=== PATIENT | male | born 1970 | race Caucasian/White ===

== ENCOUNTER 2023-07-31 13:46 | Emergency (ER) | payer OTHER ==
[2023-07-31 14:54] VITALS: TEMP 97.6
[2023-07-31] MEDS ORDERED: CIPROFLOXACIN-DEXAMETH 0.3-0.1% DROPS 7.5 ML BTL LEFT EAR STA (15:22)
[2023-07-31] MEDS ORDERED: DEXAMETHASONE SOD PHOSPHATE 10 MG/ML 1 ML VIAL IM STA (15:22)
[2023-07-31] MEDS ORDERED: traMADol 50 MG STARTER PACK 3 TAB BTL PO STA (15:23)
--- NOTE | 2023-07-31 15:36 | ED ---
ENT HPI - General Chief complaint: ENT Stated complaint: body aches Time Seen by Provider: 07/31/23 15:03 Source: patient, RN notes reviewed Mode of arrival: ambulatory Limitations: no limitations - History of Present Illness Initial comments: This is a 53-year-old male who presents to the emergency department for body aches and left ear pain. Patient states that he has a history of rheumatoid arthritis, and because he recently moved to the area, he has not been able to get his medication. He was previously treated with Xeljanz. He does have upcomin g appointments scheduled for the local roofer applicator and a primary care provider. However, states that for the last week he's been having body aches and this feels like a typical rheumatoid arthritis flareup to him. He is taking [id number] ibuprofen with no relief in symptoms. States that courses of steroids usually work well for him. Additionally, starting today he developed left ear pain with some radiation into the jaw. States that he is concerned about getting an ear infection. MD complaint: ear pain - Related Data Home Medications Medication Instructions Recorded Confirmed Escitalopram [Lexapro] 20 mg PO DAILY 01/23/15 06/15/16 amLODIPine [Norvasc] 5 mg PO DAILY 01/23/15 06/15/16 Gabapentin [Neurontin] 300 mg PO TID 06/03/15 06/15/16 Omeprazole [PriLOSEC] 10 mg PO AC-BRKFST 06/03/15 06/15/16 busPIRone HCl [Buspar] 7.5 mg PO BID 12/11/15 06/15/16 Meloxicam [Mobic] 7.5 mg PO BID 01/08/16 06/15/16 Previous Rx's Medication Instructions Recorded Hydrocodone/Acetaminophen [[place] 1 each PO Q6HR PRN #30 tab 06/15/16 5-325] cefUROXime axetiL [Ceftin] 500 mg PO BID 7 Days #14 tab 07/31/23 predniSONE 50 mg PO DAILY 5 Days #5 tab 07/31/23 Allergies Allergy/AdvReac Type Severity Reaction Status Date / Time divalproex sodium Allergy Unknown Verified 07/31/23 14:44 [From Depakote] haloperidol [From Haldol] Allergy Unknown Verified 07/31/23 14:44 haloperidol lactate Allergy Unknown Verified 07/31/23 14:44 [From Haldol] Penicillins Allergy Unknown Verified 07/31/23 14:44 Review of Systems ROS Statement: Those systems with pertinent positive or pertinent negative responses have been documented in the HPI. ROS Other: All systems not noted in ROS Statement are negative. Past Medical History Past Medical History: Fibromyalgia, GERD/Reflux, Hypertension Additional Past Medical History / Comment(s): RHEUMATOID ARTHRITIS, FRACTURED SKULL FROM A FALL History of Any Multi-Drug Resistant Organisms: MRSA Date of last positivie culture/infection: 01/23/2015 MDRO Source:: Left Axilla Past Surgical History: Prostate Surgery Additional Past Surgical History / Comment(s): carpal tunnel, lung biopsy Past Psychological History: Anxiety, Bipolar, Depression, Panic Disorder Past Alcohol Use History: None Reported Past Drug Use History: None Reported General Exam Limitations: no limitations General appearance: alert, in no apparent distress Head exam: Present: atraumatic, normocephalic, normal inspection Eye exam: Present: other (Mild left TM erythema with left canal erythema. Tenderness to palpation of the tragus.) Respiratory exam: Present: normal lung sounds bilaterally. Absent: respiratory distress, wheezes, rales, rhonchi, stridor Cardiovascular Exam: Present: regular rate, normal rhythm, normal heart sounds. Absent: systolic murmur, diastolic murmur, rubs, gallop, clicks Neurological exam: Present: alert, oriented X3, CN II-XII intact Psychiatric exam: Present: normal affect, normal mood Skin exam: Present: warm, dry, intact, normal color. Absent: rash Course Vital Signs 07/31/23 07/31/23 14:42 15:49 Temperature 97.6 F Pulse Rate 106 H 100 Respiratory 22 18 Rate Blood Pressure 149/92 150/83 O2 Sat by Pulse 96 97 Oximetry Medical Decision Making - Medical Decision Making This is a 53-year-old male who presents to the emergency department for left ear pain and body aches. Was pt. sent in by a medical professional or institution? @ -No Did you speak to anyone other than the patient for history? @ -No Did you review nursing and triage notes? @ -Yes, and I agree, it is accurate with regards to the patient's symptoms. Were old charts reviewed? @ -No Differential Diagnosis? @ -Differential Ear Pain: Otitis media, otitis externa, eustachian tube dysfunction, allergic rhinitis, barotrauma, bullous myringitis, this is not meant to be an all-inclusive list. EKG interpreted by me (3pts min.)? @ -Not obtained X-rays interpreted by me (1pt min.)? @ -Not obtained CT interpreted by me (1pt min.)? @ -Not obtained U/S interpreted by me (1pt. min.)? @ -Not obtained What testing was considered but not performed? (CT, X-rays, U/S, labs)? Why? @ -I offered to do a cepheid 4-plex swab to evaluate for other causes of the body aches, however the patient declined. What meds were considered but not given? Why? @ -None Did you discuss the management of the patient with other professionals? @ -No Did you reconcile home meds? @ -No Was smoking cessation discussed for >3mins.? @ -No Was critical care preformed (if so, how long)? @ -No Were there social determinants of health that impacted care today? How? (Homelessness, low income, unemployed, alcoholism, drug addiction, transportation, low edu. Level, literacy, decrease access to med. care, long term, rehab)? @ -No Was there de-escalation of care discussed even if they declined? (Discuss DNR or withdrawal of care, Hospice)? @ -No What co-morbidities impacted this encounter? (DM, HTN, Smoking, COPD, CAD, Cancer, CVA, Hep., AIDS, mental health diagnosis, sleep apnea, morbid obesity)? @ -Rheumatoid arthritis Was patient admitted / discharged? @ -Discharged. Physical examination consistent with left otitis media and externa. Prescription for cefuroxime and provided with dosing instructions reviewed. He was also given a bottle of Ciprodex drops in the emergency department to continue using for 7 days for the otitis externa. I did offer to do a Cepheid 4-Plex swab to evaluate for Covid or influenza specifically, in the event that is contributing to the body aches, however the patient declined. Given that this feels like a typical rheumatoid arthritis flare for him, and because steroids are typically effective, he was given a prescription for a 5 day course of prednisone. He was otherwise discharged home in stable condition and will follow up with rheumatology and his primary care provider. Undiagnosed new problem with uncertain prognosis? @ -None Drug Therapy requiring intensive monitoring for toxicity (Heparin, Nitro, Insulin, Cardizem)? @ -None Were any procedures done? @ -None Diagnosis/symptom? @ -Otitis media, otitis externa Acute, or Chronic, or Acute on Chronic? @ -Acute Uncomplicated (without systemic symptoms) or Complicated (systemic symptoms)? @ -Uncomplicated Side effects of treatment? @ -None Exacerbation, Progression, or Severe Exacerbation] @ -Not applicable Poses a threat to life or bodily function? @ -No Diagnosis/symptom? @ -Rheumatoid arthritis Acute, or Chronic, or Acute on Chronic? @ -Chronic Uncomplicated (without systemic symptoms) or Complicated (systemic symptoms)? @ -Uncomplicated Side effects of treatment? @ -None Exacerbation, Progression, or Severe Exacerbation] @ -Exacerbation Poses a threat to life or bodily function? @ -No Return precautions reviewed in depth, the patient is instructed to return to the emergency department with any new, worsening, or concerning symptoms. Patient verbalized understanding. This case was discussed in detail with the attending ED physician, Dr. Purcell. Presentation, findings, and treatment plan discussed in detail as well. Disposition Clinical Impression: Rheumatoid arthritis flare, Otitis media, Otitis externa Disposition: HOME SELF-CARE Instructions (If sedation given, give patient instructions): Swimmer's Ear (ED), Ear Infection (ED), Earache (ED) Additional Instructions: Return to the emergency department with any new, worsening, or concerning symptoms. Take the antibiotic as prescribed for 7 days. Take the prednisone daily for 5 days. Apply the Ciprodex drops provided as 4 drops to the left ear twice daily for 7 days. Prescriptions: cefUROXime axetiL [Ceftin] 500 mg PO BID 7 Days #14 tab predniSONE 50 mg PO DAILY 5 Days #5 tab Is patient prescribed a controlled substance at d/c from ED?: No Referrals: Mary Cary MD [Primary Care Provider] - 1-2 days
[2023-07-31 16:03] VITALS: BP 150/83; PULSE 100; RESP 18
== END 2023-07-31 15:57 | disposition home or self-care (01) ==
LOC: EC 13:46
DX: M06.9 Rheumatoid arthritis, unspecified (principal); H60.92 Unspecified otitis externa, left ear; I10 Essential (primary) hypertension; K21.9 Gastro-esophageal reflux disease without esophagitis; F31.9 Bipolar disorder, unspecified; F41.9 Anxiety disorder, unspecified; Z79.899 Other long term (current) drug therapy; Z88.0 Allergy status to penicillin; Z88.8 Allergy status to other drugs, medicaments and biological substances
CPT/HCPCS: 99283; 96372; J1100

== ENCOUNTER → 2023-08-05 | Outpatient (CLI) | payer OTHER ==
--- NOTE | 2023-08-08 22:02 | CT ---
EXAMINATION TYPE: CT chest wo con DATE OF EXAM: 08/05/2023 COMPARISON: 12/30/2015 HISTORY: 53-year-old male J44.9 COPD, Emphysema, Chronic SOB. TECHNIQUE: Contiguous axial scanning of the chest without IV contrast. Coronal/sagittal reconstructio ns performed. CT DLP: 568mGycm. Automatic exposure control utilized for a dose reduction. FINDINGS: The heart is normal size with trace pericardial fluid. Aorta normal caliber with bovine configuration to the aortic arch. No thoracic lymphadenopathy by CT size criteria. Calcified right hilar lymph nodes remain unchanged a nd are compatible with prior granulomatous disease. There is redemonstrated mass effect onto the anterolateral wall of the heart secondary to massive bul lous change filling the left upper lung and anteriorly down to the left lung base spanning up to near ly 29 cm, refer to sagittal image 86. Bullous change has increased here compared to 2016. Lesser degr ee of bullous change at the right upper lung. There is soft tissue thickening along the posterior margin of the large left-sided bulla measuring up to 4.6 x 1.9 cm which appears to have increased from prior. Possibly increasing parenchymal scarring or adjacent atelectasis given the increase in size of the bullous change. 4 mm right midlung pulmonary nodule is unchanged. Tiny hiatal hernia. Otherwise, visualized upper abdomen shows no gross abnormality. Bones: Mild degenerative disc disease mid to lower thoracic spine. IMPRESSION: 1. Bullous emphysema. Severe bullous change filling the left upper lung down to the anterior left bas e, enlarged from 2016 and spanning nearly 29 cm top to bottom. This large bulla causes some mass effe ct on to the anterolateral wall of the heart, similar to prior. Given the very large size, consider r eferral to assessment for possible bullectomy. 2. There is increasing focal left midlung opacity along the posterior margin of the left-sided bullou s change, probably increasing scarring or increasing adjacent atelectasis. Reassess in 3-6 months. 3. Evidence of prior granulomatous disease.
== END | disposition home or self-care (01) ==
LOC: RADCTMAIN 15:00
PROVIDERS: ATTEND Family Medicine
DX: J44.9 Chronic obstructive pulmonary disease, unspecified (principal); J43.8 Other emphysema; J98.4 Other disorders of lung; I51.7 Cardiomegaly; R91.8 Other nonspecific abnormal finding of lung field; Z72.0 Tobacco use
CPT/HCPCS: 71250

== ENCOUNTER → 2023-09-01 | Outpatient (CLI) | payer OTHER ==
--- NOTE | 2023-09-01 18:47 | US ---
EXAMINATION TYPE: US venous doppler duplex LE DATE OF EXAM: 09/01/2023 10:44 AM COMPARISON: NONE CLINICAL INDICATION: Male, 53 years old with history of R22.43 LOCALIZED SWELLING, MASS AND LUMP, LOW ER LI; No hx of DVT. Patient does not take blood thinners. Swelling x a couple years. SIDE PERFORMED: Bilateral TECHNIQUE: The lower extremity deep venous system is examined utilizing real time linear array sonog radha with graded compression, doppler sonography and color-flow sonography. VESSELS IMAGED: Common Femoral Vein Deep Femoral Vein Greater Saphenous Vein * Femoral Vein Popliteal Vein Small Saphenous Vein * Proximal Calf Veins (* superficial vessels) Right Leg: No evidence of DVT. Left Leg: No evidence of DVT. IMPRESSION: 1. Bilateral lower extremity ultrasound negative for deep venous thrombosis
== END | disposition home or self-care (01) ==
LOC: RADUSWWP 10:24
PROVIDERS: ATTEND Family Medicine
DX: R22.43 Localized swelling, mass and lump, lower limb, bilateral (principal)
CPT/HCPCS: 93970

== ENCOUNTER 2023-09-23 15:38 | Emergency (ER) | payer OTHER ==
[2023-09-23] MEDS ORDERED: IPRATROPIUM-ALBUTEROL 3 ML NEB INHALATION STA (17:08)
[2023-09-23 17:26] LABS: Basophils # (A) 0.1 k/uL (0-0.2); Basophils % (A) 0 %; Eosinophils # (A) 0.1 k/uL (0-0.7); Eosinophils % (A) 1 %; HCT 48.3 % (39.0-53.0); HGB 17.3 gm/dL (13.0-17.5); Lymphocytes # (A) 2.1 k/uL (1.0-4.8); Lymphocytes % (A) 20 %; MCH 33.6 pg (25.0-35.0); MCHC 35.7 g/dL (31.0-37.0); MCV 94.1 fL (80.0-100.0); Mean Platelet Volume 8.2; Monocytes # (A) 0.6 k/uL (0-1.0); Monocytes % (A) 6 %; Neutrophils # (A) 7.9 k/uL (1.3-7.7); Neutrophils % (A) 72 %; Platelet Count 290 k/uL (150-450); RBC 5.13 m/uL (4.30-5.90); RDW 12.7 % (11.5-15.5)
[2023-09-23 17:31] LABS: ALT 19 U/L (4-49); AST 23 U/L (17-59); African American GFR (CKD) >90 (>60 ml/min/1.73 sqM); Albumin 4.3 g/dL (3.5-5.0); Alkaline Phosphatase 108 U/L (38-126); Anion Gap 8 mmol/L; Blood Urea Nitrogen 20 mg/dL (9-20); Calcium 9.5 mg/dL (8.4-10.2); Carbon Dioxide 29 mmol/L (22-30); Chloride 102 mmol/L (98-107); Glucose 101 mg/dL (74-99); Magnesium 1.9 mg/dL (1.6-2.3); Non-African American GFR(CKD) >90 (>60 ml/min/1.73 sqM); Sodium 139 mmol/L (137-145); Total Bilirubin 0.6 mg/dL (0.2-1.3); Total Protein 7.3 g/dL (6.3-8.2)
[2023-09-23 17:32] LABS: Potassium 3.9 mmol/L (3.5-5.1)
[2023-09-23 17:44] LABS: INR 0.9 (<1.2); Partial Thromboplastin Time 24.5 sec (22.0-30.0); Prothrombin Time 10.4 sec (10.0-12.5)
--- NOTE | 2023-09-23 18:01 | XR ---
EXAMINATION TYPE: XR chest 2V DATE OF EXAM: 09/23/2023 COMPARISON: -16 HISTORY: Shortness of breath TECHNIQUE: Frontal and lateral views of the chest are obtained. FINDINGS: Scattered senescent parenchymal changes noted. Hyperinflation compatible with COPD. Severe emphysemat ous bullous changes left upper lobe. No evidence for infiltrate. No evidence for atelectasis. Heart size is stable. Mediastinal structures are stable and grossly unremarkable. No evidence for hilar prominence. Degenerative changes dorsal spine. IMPRESSION: 1. No evidence for acute pulmonary disease.
--- NOTE | 2023-09-23 18:11 | ED ---
General Adult HPI - General Chief complaint: Recheck/Abnormal Lab/Rx Stated complaint: Abnormal EKG/sent by dr Time Seen by Provider: 09/23/23 16:41 Source: patient, RN notes reviewed, old records reviewed Mode of arrival: ambulatory Limitations: no limitations - History of Present Illness Initial comments: This is a 53-year-old male who presents to the emergency department stating he has been having some intermittent chest pain over the last few days. Patient states he is a smoker does have high blood pressure and high cholesterol. Patient states he went to see his doctor they did an EKG and his heart rate was 120 beats a minute she wanted to come to the emergency department to be evaluated. Patient states he does have some difficulty breathing and occasional cough but he is a heavy smoker. Patient denies any palpitation. Patient denies any abdominal pain patient has nausea vomiting diarrhea - Related Data Home Medications Medication Instructions Recorded Confirmed Escitalopram [Lexapro] 20 mg PO DAILY 01/23/15 06/15/16 amLODIPine [Norvasc] 5 mg PO DAILY 01/23/15 06/15/16 Gabapentin [Neurontin] 300 mg PO TID 06/03/15 06/15/16 Omeprazole [PriLOSEC] 10 mg PO AC-BRKFST 06/03/15 06/15/16 busPIRone HCl [Buspar] 7.5 mg PO BID 12/11/15 06/15/16 Meloxicam [Mobic] 7.5 mg PO BID 01/08/16 06/15/16 Previous Rx's Medication Instructions Recorded Hydrocodone/Acetaminophen [[place] 1 each PO Q6HR PRN #30 tab 06/15/16 5-325] cefUROXime axetiL [Ceftin] 500 mg PO BID 7 Days #14 tab 07/31/23 predniSONE 50 mg PO DAILY 5 Days #5 tab 07/31/23 Allergies Allergy/AdvReac Type Severity Reaction Status Date / Time divalproex sodium Allergy Unknown Verified 09/23/23 15:48 [From Depakote] haloperidol [From Haldol] Allergy Unknown Verified 09/23/23 15:48 haloperidol lactate Allergy Unknown Verified 09/23/23 15:48 [From Haldol] Penicillins Allergy Unknown Verified 09/23/23 15:48 Review of Systems ROS Statement: Those systems with pertinent positive or pertinent negative responses have been documented in the HPI. ROS Other: All systems not noted in ROS Statement are negative. Past Medical History Past Medical History: Fibromyalgia, GERD/Reflux, Hypertension Additional Past Medical History / Comment(s): RHEUMATOID ARTHRITIS, FRACTURED SKULL FROM A FALL History of Any Multi-Drug Resistant Organisms: MRSA Date of last positivie culture/infection: 01/23/2015 MDRO Source:: Left Axilla Past Surgical History: Prostate Surgery Additional Past Surgical History / Comment(s): carpal tunnel, lung biopsy Past Psychological History: Anxiety, Bipolar, Depression, Panic Disorder Smoking Status: Current every day smoker Past Alcohol Use History: None Reported Past Drug Use History: None Reported General Exam - General Exam Comments Initial Comments: GENERAL: Patient is well-developed and well-nourished. Patient is nontoxic and well- hydrated and is in mild distress. ENT: Neck is soft and supple. No significant lymphadenopathy is noted. Oropharynx is clear. Moist mucous membranes. Neck has full range of motion without eliciting any pain. EYES: The sclera were anicteric and conjunctiva were pink and moist. Extraocular movements were intact and pupils were equal round and reactive to light. Eyelids were unremarkable. PULMONARY: Expiratory wheezing CARDIOVASCULAR: There is a regular rate and rhythm without any murmurs gallops or rubs. ABDOMEN: Soft and nontender with normal bowel sounds. SKIN: Skin is clear with no lesions or rashes and otherwise unremarkable. NEUROLOGIC: Patient is alert and oriented x3. Cranial nerves II through XII are grossly in tact. Motor and sensory are also intact. Normal speech, volume and content. Symmetrical smile. MUSCULOSKELETAL: Normal extremities with adequate strength and full range of motion. LYMPHATICS: No significant lymphadenopathy is noted PSYCHIATRIC: Normal psychiatric evaluation. Limitations: no limitations Course Vital Signs 09/23/23 09/23/23 09/23/23 15:45 17:51 17:58 Temperature 97.4 F L Pulse Rate 128 H 120 H 118 H Respiratory 18 20 20 Rate Blood Pressure 151/89 O2 Sat by Pulse 97 Oximetry 09/23/23 18:44 Temperature 98.0 F Pulse Rate 101 H Respiratory 16 Rate Blood Pressure 136/91 O2 Sat by Pulse 96 Oximetry Medical Decision Making - Medical Decision Making EKG is interpreted by myself EKG shows a sinus tachycardia at 121 bpm SD interval is 148 QRS is 94 QT interval 314 QTc is 386 patient's EKG shows no ST segment ovation or depression. Was pt. sent in by a medical professional or institution (LITZY Carlton, ATHLETIC EQUIPMENT CUSTODIAN, urgent care, hospital, or care home...) When possible be specific @ -No Did you speak to anyone other than the patient for history (EMS, parent, family, police, friend...)? What history was obtained from this source @ -No Did you review nursing and triage notes (agree or disagree)? Why? @ -I reviewed and agree with nursing and triage notes Were old charts reviewed (outside hosp., previous admission, EMS record, old EKG, old radiological studies, urgent care reports/EKG's, care home records)? Report findings @ -I reviewed prior charts and prior lab work on this patient Differential Diagnosis (chest pain, altered mental status, abdominal pain women, abdominal pain men, vaginal bleeding, weakness, fever, dyspnea, syncope, headache, dizziness, GI bleed, back pain, seizure, CVA, palpatations, mental health, musculoskeletal)? @ -Differential Chest Pain: Stable Angina, Unstable Angina, STEMI, NSTEMI Aortic Dissection, Pneumothorax, Musculoskeletal, Esophageal Spasm GERD, Cholecystitis, Pancreatitis, Zoster, this is not meant to be an all-inclusive list. Differential Palpitations Ventricular arrhythmias, atrial arrhythmias, myocardial infarction, anemia, thyrotoxicosis, electrolyte imbalance, hypokalemia, pulmonary embolism, pulmonary disease, drugs, alcohol, anxiety, stress.... This is not meant to be an all-inclusive list. EKG interpreted by me (3pts min.). @ -As above X-rays interpreted by me (1pt min.). @ -Chest x-ray showed no acute normality CT interpreted by me (1pt min.). @ -None done U/S interpreted by me (1pt. min.). @ -None done What testing was considered but not performed or refused? (CT, X-rays, U/S, labs)? Why? @ -None What meds were considered but not given or refused? Why? @ -None Did you discuss the management of the patient with other professionals (professionals i.e. LITZY Carlton, ATHLETIC EQUIPMENT CUSTODIAN, lab, RT, psych nurse, director of social work, frit mixer and burner, teacher, juvenile detention officer, director case management)? Give summary @ -No Was smoking cessation discussed for >3mins.? @ -No Was critical care preformed (if so, how long)? @ -No Were there social determinants of health that impacted care today? How? (Homelessness, low income, unemployed, alcoholism, drug addiction, transpor tation, low edu. Level, literacy, decrease access to med. care, [facility], rehab)? @ -No Was there de-escalation of care discussed even if they declined (Discuss DNR or withdrawal of care, Hospice)? DNR status @ -No What co-morbidities impacted this encounter? (DM, HTN, Smoking, COPD, CAD, Cancer, CVA, ARF, Chemo, Hep., AIDS, mental health diagnosis, sleep apnea, morbid obesity)? @ -None Was patient admitted / discharged? Hospital course, mention meds given and route, prescriptions, significant lab abnormalities, going to OR and other pertinent info. @ -Patient's lab work came back within normal limits as did the chest x-ray patient was still tachycardic at 105 bpm. I spoke to the patient about staying overnight and I recommended it. Patient refused stated he will follow-up as an outpatient and I indicated to him that he would have to sign out AGAINST MEDICAL ADVICE he said he was okay with that and did so Undiagnosed new problem with uncertain prognosis? @ -No Drug Therapy requiring intensive monitoring for toxicity (Heparin, Nitro, Insulin, Cardizem)? @ -No Were any procedures done? @ -No Diagnosis/symptom? @ -Chest pain Acute, or Chronic, or Acute on Chronic? @ -Acute Uncomplicated (without systemic symptoms) or Complicated (systemic symptoms)? @ -Complicated Side effects of treatment? @ -No Exacerbation, Progression, or Severe Exacerbation? @ -No Poses a threat to life or bodily function? How? (Chest pain, [place], [place], pneumonia, PE, COPD, DKA, ARF, appy, cholecystitis, CVA, Diverticulitis, Homicidal, Suicidal, threat to staff... and all critical care pts) @ -This could lead to an [place] and endorgan dysfunction or - Lab Data Result diagrams: 09/23/23 17:21 09/23/23 17:21 Lab Results 09/23/23 09/23/23 09/23/23 Range/Units 17:21 17:21 17:21 WBC 11.0 H (3.8-10.6) k/uL RBC 5.13 (4.30-5.90) m/uL Hgb 17.3 (13.0-17.5) gm/dL Hct 48.3 (39.0-53.0) % MCV 94.1 (80.0-100.0) fL MCH 33.6 (25.0-35.0) pg MCHC 35.7 (31.0-37.0) g/dL RDW 12.7 (11.5-15.5) % Plt Count 290 (150-450) k/uL MPV 8.2 Neutrophils % 72 % Lymphocytes % 20 % Monocytes % 6 % Eosinophils % 1 % Basophils % 0 % Neutrophils # 7.9 H (1.3-7.7) k/uL Lymphocytes # 2.1 (1.0-4.8) k/uL Monocytes # 0.6 (0-1.0) k/uL Eosinophils # 0.1 (0-0.7) k/uL Basophils # 0.1 (0-0.2) k/uL PT 10.4 (10.0-12.5) sec INR 0.9 (<1.2) APTT 24.5 (22.0-30.0) sec D-Dimer 0.22 (<0.60) mg/L FEU Sodium 139 (137-145) mmol/L Potassium 3.9 (3.5-5.1) mmol/L Chloride 102 (98-107) mmol/L Carbon Dioxide 29 (22-30) mmol/L Anion Gap 8 mmol/L BUN 20 (9-20) mg/dL Creatinine 0.70 (0.66-1.25) mg/dL Est GFR (CKD-EPI)AfAm >90 (>60 ml/min/1.73 sqM) Est GFR (CKD-EPI)NonAf >90 (>60 ml/min/1.73 sqM) Glucose 101 H (74-99) mg/dL Plasma Lactic Acid Dandre (0.7-2.0) mmol/L Calcium 9.5 (8.4-10.2) mg/dL Magnesium 1.9 (1.6-2.3) mg/dL Total Bilirubin 0.6 (0.2-1.3) mg/dL AST 23 (17-59) U/L ALT 19 (4-49) U/L Alkaline Phosphatase 108 (38-126) U/L Troponin I (0.000-0.034) ng/mL Total Protein 7.3 (6.3-8.2) g/dL Albumin 4.3 (3.5-5.0) g/dL 09/23/23 09/23/23 Range/Units 17:21 17:55 WBC (3.8-10.6) k/uL RBC (4.30-5.90) m/uL Hgb (13.0-17.5) gm/dL Hct (39.0-53.0) % MCV (80.0-100.0) fL MCH (25.0-35.0) pg MCHC (31.0-37.0) g/dL RDW (11.5-15.5) % Plt Count (150-450) k/uL MPV Neutrophils % % Lymphocytes % % Monocytes % % Eosinophils % % Basophils % % Neutrophils # (1.3-7.7) k/uL Lymphocytes # (1.0-4.8) k/uL Monocytes # (0-1.0) k/uL Eosinophils # (0-0.7) k/uL Basophils # (0-0.2) k/uL PT (10.0-12.5) sec INR (<1.2) APTT (22.0-30.0) sec D-Dimer (<0.60) mg/L FEU Sodium (137-145) mmol/L Potassium (3.5-5.1) mmol/L Chloride (98-107) mmol/L Carbon Dioxide (22-30) mmol/L Anion Gap mmol/L BUN (9-20) mg/dL Creatinine (0.66-1.25) mg/dL Est GFR (CKD-EPI)AfAm (>60 ml/min/1.73 sqM) Est GFR (CKD-EPI)NonAf (>60 ml/min/1.73 sqM) Glucose (74-99) mg/dL Plasma Lactic Acid Dandre 1.3 (0.7-2.0) mmol/L Calcium (8.4-10.2) mg/dL Magnesium (1.6-2.3) mg/dL Total Bilirubin (0.2-1.3) mg/dL AST (17-59) U/L ALT (4-49) U/L Alkaline Phosphatase (38-126) U/L Troponin I <0.012 (0.000-0.034) ng/mL Total Protein (6.3-8.2) g/dL Albumin (3.5-5.0) g/dL Disposition Clinical Impression: Chest pain Disposition: LEFT AGAINST MEDICAL ADVICE Referrals: Mary Cary MD [Primary Care Provider] - 1-2 days Time of Disposition: 19:01
[2023-09-23 19:10] VITALS: BP 136/91; PULSE 101; RESP 16; TEMP 98
== END 2023-09-23 18:51 | disposition left against medical advice (07) ==
LOC: EC 15:38
DX: R07.89 Other chest pain (principal); R00.0 Tachycardia, unspecified; I10 Essential (primary) hypertension; K21.9 Gastro-esophageal reflux disease without esophagitis; F41.9 Anxiety disorder, unspecified; F31.9 Bipolar disorder, unspecified; M06.9 Rheumatoid arthritis, unspecified; F17.200 Nicotine dependence, unspecified, uncomplicated; Z53.29 Procedure and treatment not carried out because of patient's decision for other reasons; Z79.899 Other long term (current) drug therapy; Z88.0 Allergy status to penicillin; Z88.8 Allergy status to other drugs, medicaments and biological substances
CPT/HCPCS: 36415; 71046; 80053; 83605; 83735; 84484; 85025; 85379; 85610; 85730; 93005; 94640; 99285

== ENCOUNTER → 2023-12-12 | Outpatient (CLI) | payer OTHER ==
[2023-12-12 11:16] LABS: HCT 48.1 % (39.6-50.0); MCH 31.7 pg (27.0-32.0); MCHC 33.3 g/dL (32.0-37.0); MCV 95.2 FL (80.0-97.0); Mean Platelet Volume 9.6 FL (9.5-12.2); NRBC Per 100 WBC 0 X 10*3/uL (0.00-0.01); Platelet Count 278 X 10*3/uL (140-440); RBC 5.05 X 10*6/uL (4.40-5.60); WBC 9.84 X 10*3/uL (4.50-10.00)
[2023-12-12 11:37] LABS: ALT 16 U/L (10-49); AST 19 U/L (14-35); Albumin 4.1 g/dL (3.8-4.9); Albumin/Globulin Ratio 1.71 Ratio (1.60-3.17); Alkaline Phosphatase 114 U/L (41-126); BUN/Creat Ratio 15.12 Ratio (12.00-20.00); Blood Urea Nitrogen 12.1 mg/dL (9.0-27.0); Calcium 9.2 mg/dL (8.7-10.3); Carbon Dioxide 28.1 mmol/L (21.6-31.8); Chloride 105 mmol/L (96-109); Chol/HDL Ratio 2.45 Ratio; Globulin 2.4 g/dL (1.6-3.3); Glucose 100 mg/dL (70-110); LDL Cholesterol,Calculated 34.3 mg/dL (0.0-131.0); Potassium 4.3 mmol/L (3.5-5.5); Sodium 144 mmol/L (135-145); Total Bilirubin 0.4 mg/dL (0.3-1.2); Total Protein 6.5 g/dL (6.2-8.2)
== END | disposition home or self-care (01) ==
LOC: LABWHC1 06:53
PROVIDERS: ATTEND Student in an Organized Health Care Education/Training Program
DX: I10 Essential (primary) hypertension (principal); E11.9 Type 2 diabetes mellitus without complications; R00.0 Tachycardia, unspecified
CPT/HCPCS: 36415; 80053; 80061; 83036; 84443; 85027

== ENCOUNTER 2024-02-06 05:50 | Day surgery (SDC) | payer OTHER ==
[2024-02-02 14:29] VITALS: BMI 26.9
[~2024-02-06 05:50] MED LIST: ALPRAZolam 0.25 MG TAB PO PRN; ALPRAZolam 0.5 MG TAB PO PRN; ASPIRIN 325 MG TAB PO STA; ATORVASTATIN 80 MG TAB PO STA; HEPARIN SODIUM,PORCINE (1 ML) 2,500 UNIT in SODIUM CHLORIDE 0.9% 250 ML IRRIGATION PRN; HEPARIN SODIUM,PORCINE 10,000 UNIT in SODIUM CHLORIDE 0.9% 1,000 ML IRRIGATION PRN; NITROGLYCERIN SL TABS 0.4 MG TAB SUBLINGUAL PRN
[2024-02-06 06:36] VITALS: RESP 18; TEMP 98.2
[2024-02-06] MEDS: IV FLUID CONTINUATION 1,000 ML IV ONE (06:37)
[2024-02-06] MEDS: SODIUM CHLORIDE 0.9% 1,000 ML in EMPTY BAG 1 BAG IV SCH (06:37)
[2024-02-06 06:49] LABS: African American GFR (CKD) >90 (>60 ml/min/1.73 sqM); Anion Gap 5 mmol/L; Blood Urea Nitrogen 16 mg/dL (9-20); Calcium 9.2 mg/dL (8.4-10.2); Carbon Dioxide 28 mmol/L (22-30); Chloride 108 mmol/L (98-107); Glucose 111 mg/dL (74-99); Non-African American GFR(CKD) >90 (>60 ml/min/1.73 sqM); Potassium 3.8 mmol/L (3.5-5.1); Sodium 141 mmol/L (137-145)
[2024-02-06 06:59] LABS: Basophils # (A) 0.1 k/uL (0-0.2); Basophils % (A) 1 %; Eosinophils # (A) 0.2 k/uL (0-0.7); Eosinophils % (A) 2 %; HCT 46.1 % (39.0-53.0); HGB 15.6 gm/dL (13.0-17.5); Lymphocytes # (A) 3.6 k/uL (1.0-4.8); Lymphocytes % (A) 34 %; MCH 31.6 pg (25.0-35.0); MCHC 33.7 g/dL (31.0-37.0); MCV 93.7 fL (80.0-100.0); Mean Platelet Volume 7.9; Monocytes # (A) 0.7 k/uL (0-1.0); Monocytes % (A) 7 %; Neutrophils # (A) 5.9 k/uL (1.3-7.7); Neutrophils % (A) 56 %; Platelet Count 311 k/uL (150-450); RBC 4.92 m/uL (4.30-5.90); RDW 13.3 % (11.5-15.5); WBC 10.6 k/uL (3.8-10.6)
[2024-02-06] MEDS ORDERED: VERAPAMIL 2.5 MG/ML 2 ML AMP ONE (07:14)
[2024-02-06] MEDS ORDERED: LIDOCAINE 1% INJ 10MG/ML (20 ML MDV) ONE (07:14)
[2024-02-06] MEDS ORDERED: HEPARIN SODIUM 1,000 UN/ML (10ML VL) ONE (07:36)
[2024-02-06] MEDS ORDERED: fentaNYL (PF) 50 MCG/ML 2 ML AMP ONE (07:36)
[2024-02-06] MEDS: fentaNYL (PF) 50 MCG/ML 2 ML AMP IVP ONE (07:56)
[2024-02-06] MEDS: MIDAZOLAM 2 MG/2 ML VIAL IVP ONE (07:56)
[2024-02-06] MEDS: LIDOCAINE 1% INJ 10MG/ML (20 ML MDV) SQ ONE (07:57)
[2024-02-06] MEDS: VERAPAMIL 2.5 MG/ML 4 ML VIAL INTRAARTER ONE ×2 (08:00)
[2024-02-06] MEDS: HEPARIN SODIUM 1,000 UN/ML (10ML VL) IVP ONE (08:05)
[2024-02-06] MEDS: IOPAMIDOL-370 100ML BTL INJ ONE (08:17)
[2024-02-06] MEDS ORDERED: RX INFO: IV CONTRAST WAS GIVEN 1 EACH MISC MISCELLANE PRN (08:38)
--- NOTE | 2024-02-06 08:38 | P.CARDCATH ---
Date of Procedure: 02/06/24 Description of Procedure: DIAGNOSTIC CORONARY ANGIOGRAPHY and LEFT HEART CATH REPORT PROCEDURES PERFORMED: Left heart catheterization Selective coronary angiography Moderate conscious sedation 30 mins [Ultrasound assisted] Right radial access INDICATION: Fixed inferior perfusion defect on nuclear stress test. Echocardiogram showing an EF of 45 to 50%. Heart cath was performed because of perfusion defect on nuclear stress test, mild cardiomyopathy along with his symptoms of substernal chest pressure and shortness of breath which is not resolving with metoprolol and calcium channel lisa. CONSENT: I have explained the procedural steps of above-mentioned procedures in layman's terms to the patient. I discussed the risks (including but not limited to stroke, emergent vascular or cardiac surgery or ), benefits and alternative therapies for the above-mentioned procedure. I discussed the risks of sedation/analgesia and blood product administration (if indicated). The patient has indicated understanding and acceptance of these risks. Conscious Sedation: Patient's ECG, heart rate, blood pressure, pulse oximetry were monitored throughout the duration of procedure under my direct supervision. 1 mg Versed and 50 mg Fentanyl were used for induction of moderate conscious sedation. Total duration of moderate concious sedation 30 minutes. PROCEDURE: After explaining the risks, benefits and alternatives of the above mentioned procedures in detail to the patient, informed consent was obtained. Patient was taken to the catheterization lab, prepped and draped in usual sterile fashion using universal precuations. Barbow and michael test were performed to confirm adequate perfusion to fingers. Ultrasound was used to identify the radial artery. 1% lidocaine was infiltrated over the right radial artery. A 6-Slovenian sheath was placed and secured in the right radial artery using modified Seldinger technique. The sheath was flushed and 5 mg verapamil was administered intra-arterially. J tipped wire was advanced under fluoroscopic guidance. Once the wire tip reached aortic root [5000] units of IV heparin was given. Over the wire JR4 diagnostic catheter was advanced. The wire in place the catheter was manipulated to cross the aortic valve and entered into LV under fluoroscopy guidance. The wire was removed and the catheter was flushed. LV pressures were obtained and pullback was performed under fluoroscopy. Catheter was manipulated to selectively engage the right coronary ostium. Right coronary angiography was performed in different angiographic projections. The JR4 diagnostic catheter was exchanged for a JL 4 diagnostic catheter over the J-wire. The wire was removed, catheter was flushed and manipulated under fluoroscopy to selectively engaged the left coronary ostium. Left coronary angioplasty was performed in different angiographic projections. Catheter was removed over the wire. Radial sheath was flushed. The right radial sheath was removed and a TR band was placed with excellent patent hemostasis was achieved. The patient tolerated the procedure well. Patient was transported back to the post catheterization holding area in stable condition. Angiographic images were reviewed in detail. Contrast Isovue 60 mL Sedation time 30 minutes Complications none Blood loss less than 20 mL Total radiation, 265 mGy Fluoroscopy time 6.2 minutes HEMODYNAMICS: Aortic Pressure: 110/80 mmHg. LV pressure: 110/14 mmHg. LVEDP 20 mmHg. There was no significant gradient across the aortic valve. SELECTIVE CORONARY ARTERIOGRAPHY: LEFT MAIN: The left main is a large caliber vessel which bifurcates into the LAD and circumflex. Left main appears angiographically normal. LEFT ANTERIOR DESCENDING CORONARY ARTERY: LAD is large caliber, tortuous. Proximal middle and distal LAD it has mild luminal irregularities. It gives rise to diagonal branches which has mild luminal Mineola's. LEFT CIRCUMFLEX CORONARY ARTERY: It is nondominant vessel. Left circumflex is a moderate caliber vessel. It appears angiographically normal. It gives rise to OM branches which appears angiographically normal. RIGHT CORONARY ARTERY: Dominant vessel. The right coronary artery is a large caliber vessel which gives PDA and PLV branch. RCA is tortuous. It has mild maria t bijan irregularities. IMPRESSION: Angiographically normal coronary arteries as described above. Mildly elevated LVEDP Nonischemic HFmrEF, euvolemic Essential hypertension PLAN: Aggressive risk factor modification per most recent ACC/AHA guidelines. 125 cc fluids for 3 hours Discharge home in 3 hours Follow-up in the office in 1-2 weeks. Performing Physician Montrell Hdez MD, FACC, RPVI Thank you for allowing [facility] to participate in this patient's care. Feel free to reach out in case of any followup questions.
[2024-02-06] MEDS ORDERED: SODIUM CHLORIDE 0.9% 1,000 ML IV SCH (08:45)
[2024-02-06 10:49] VITALS: PULSE 81
[2024-02-06 11:25] VITALS: BP 122/65
== END 2024-02-06 11:58 | disposition home or self-care (01) ==
LOC: CATHCVL 05:50
PROVIDERS: ATTEND Student in an Organized Health Care Education/Training Program
DX: I42.9 Cardiomyopathy, unspecified (principal); I10 Essential (primary) hypertension; J44.9 Chronic obstructive pulmonary disease, unspecified; E78.5 Hyperlipidemia, unspecified; F31.9 Bipolar disorder, unspecified; F41.1 Generalized anxiety disorder; F17.210 Nicotine dependence, cigarettes, uncomplicated; Z88.0 Allergy status to penicillin; Z91.011 Allergy to milk products; Z88.8 Allergy status to other drugs, medicaments and biological substances; Z79.899 Other long term (current) drug therapy
CPT/HCPCS: 93458; 76937; 80048; 85025; 99152; 99153; C1769 ×2; C1894; J2250; J2001; J3010; J1644; Q9967

== ENCOUNTER → 2024-05-02 | Outpatient (CLI) | payer OTHER ==
--- NOTE | 2024-05-02 17:54 | CT ---
EXAMINATION TYPE: CT chest w con CT DLP: 467.4 mGycm, Automated exposure control for dose reduction was used. DATE OF EXAM: 05/02/2024 12:06 PM COMPARISON: CT chest 08/05/2023, chest radiograph 04/17/2024 CLINICAL INDICATION:Male, 53 years old with history of R91.8 ABNORMAL FINDING; PHH, abnormal findings TECHNIQUE: Multiple axial images were obtained through the chest following the administration of 100 cc of Isovue 300. . Coronal and sagittal reformats reviewed. FINDINGS: LUNGS/ PLEURA: No pleural effusion or pneumothorax. Stable soft tissue thickening along the left kim r fissure. Probable atelectasis/scarring. Redemonstration of moderate paraseptal and centrilobular em physematous changes. Redemonstration of massive bullous emphysematous changes in the bilateral upper lungs left greater than right. Stable right midlung 5 mm pulmonary nodule (series 4, image 43). No ne w or enlarging pulmonary nodules. AIRWAY: Patent and unremarkable.. HEART: Size within normal limits. No pericardial effusion. There is again mass effect upon the ada lateral wall of the heart secondary to massive bullous emphysematous change. MEDIASTINUM: No evidence of adenopathy. Calcified right hilar lymph nodes redemonstrated. VASCULATURE: No aortic aneurysm. Reflux of contrast into the IVC and hepatic veins. MUSCULOSKELETAL: No acute osseous abnormalities SOFT TISSUES/LYMPH NODES: Unremarkable. LOWER NECK: No significant findings. UPPER ABDOMEN: No significant findings. IMPRESSION: 1. Severe bullous emphysematous changes redemonstrated. This is again most prominent within the left upper lung. This bulla again causes mass effect on the anterolateral wall of the heart with reflux of contrast into the IVC and hepatic veins suggesting heart dysfunction. 2. Stable focal left midlung opacity along the posterior margin of the left-sided bullous change abut ting the major fissure. Favored to represent scarring and/or atelectasis.
== END | disposition home or self-care (01) ==
LOC: RADCTMAIN 11:32
PROVIDERS: ATTEND Internal Medicine
DX: R91.8 Other nonspecific abnormal finding of lung field
CPT/HCPCS: 71260

== ENCOUNTER 2024-08-24 23:55 | Observation (INO) | payer OTHER ==
[2024-08-25] MEDS: SODIUM CHLORIDE 0.9% 1,000 ML IV STA (00:22)
[2024-08-25] MEDS: IPRATROPIUM 0.5 MG/2.5 ML NEBU INHALATION ONE ×2 (00:23→00:37)
[2024-08-25] MEDS: ALBUTEROL NEBULIZED 2.5 MG/3 ML INHALATION SCH (00:23)
[2024-08-25] MEDS: methylPREDNISolone SOD SUCCI 125 MG/2 ML VIAL IV STA (00:25)
[2024-08-25] MEDS: LORazepam 2 MG/ML INJ IV STA ×3 (00:31→03:58)
[2024-08-25 00:34] LABS: Basophils # (A) 0.1 k/uL (0-0.2); Basophils % (A) 0 %; Eosinophils # (A) 0.2 k/uL (0-0.7); Eosinophils % (A) 1 %; HCT 47.6 % (39.0-53.0); HGB 15.5 gm/dL (13.0-17.5); Lymphocytes # (A) 2.1 k/uL (1.0-4.8); Lymphocytes % (A) 11 %; MCH 31.5 pg (25.0-35.0); MCHC 32.5 g/dL (31.0-37.0); MCV 97.1 fL (80.0-100.0); Monocytes # (A) 1.1 k/uL (0-1.0); Monocytes % (A) 6 %; Neutrophils # (A) 15.9 k/uL (1.3-7.7); Neutrophils % (A) 81 %; Platelet Count 382 k/uL (150-450); RDW 13.4 % (11.5-15.5); WBC 19.6 k/uL (3.8-10.6)
[2024-08-25 00:56] LABS: INR 0.9 (<1.2); Partial Thromboplastin Time 22.5 sec (22.0-30.0)
[2024-08-25 01:08] LABS: ALT 30 U/L (4-49); AST 28 U/L (17-59); African American GFR (CKD) >90 (>60 ml/min/1.73 sqM); Albumin 4.7 g/dL (3.5-5.0); Alkaline Phosphatase 133 U/L (38-126); Anion Gap 7 mmol/L; Blood Urea Nitrogen 19 mg/dL (9-20); Calcium 9.9 mg/dL (8.4-10.2); Carbon Dioxide 33 mmol/L (22-30); Chloride 101 mmol/L (98-107); Glucose 118 mg/dL (74-99); Magnesium 2.1 mg/dL (1.6-2.3); Non-African American GFR(CKD) >90 (>60 ml/min/1.73 sqM); Potassium 4.5 mmol/L (3.5-5.1); Sodium 141 mmol/L (137-145); Total Bilirubin 0.4 mg/dL (0.2-1.3); Total Protein 7.2 g/dL (6.3-8.2)
[2024-08-25 01:17] LABS: NT-Pro-B-Type Natriuretic Pept 101 pg/mL
--- NOTE | 2024-08-25 01:21 | ED ---
General Adult HPI - General Chief complaint: Shortness of Breath Stated complaint: VISHAL Time Seen by Provider: 08/25/24 00:03 Source: patient Mode of arrival: ambulatory Limitations: no limitations - History of Present Illness Initial comments: History is limited by acuity of condition. Patient is a 54-year-old male with a past medical history of COPD, currently smoking, CAD presenting today for shortness of breath x 2 days. Patient endorses subjective fevers and chills but has not measured a temperature at home, states he has had a sore throat and congestion as well. Endorses cough with increased sputum production but no hemoptysis. Endorses mild lower chest discomfort but states that this is discomfort he has had in the past with COPD exacerbations. Denies lower extremity swelling. No recent travels, surgery or hospitalizations. States he did recently see his cutting and printing machine operator Dr. Hdez who "checked him for blood clots" and did not find any. Does not wear oxygen at home. - Related Data Home Medications Medication Instructions Recorded Confirmed amLODIPine [Norvasc] 5 mg PO DAILY 01/23/15 08/25/24 Albuterol Inhaler [Ventolin Hfa 2 puff INHALATION RT-Q4H PRN 09/23/23 08/25/24 Inhaler] Budesonide/Formoterol Fumarate 2 puff INHALATION RT-BID 09/23/23 08/25/24 [Symbicort 160-4.5 Mcg Inhaler] DULoxetine HCL [Cymbalta] 60 mg PO DAILY 09/23/23 08/25/24 Hydroxychloroquine Sulfate 200 mg PO BID 09/23/23 08/25/24 [Plaquenil] busPIRone HCl [Buspar] 10 mg PO BID 09/23/23 08/25/24 Aspirin [Adult Low Dose Aspirin EC] 81 mg PO DAILY 02/02/24 08/25/24 Losartan [Cozaar] 25 mg PO DAILY 02/02/24 08/25/24 Metoprolol Tartrate 25 mg PO BID 02/02/24 08/25/24 Tofacitinib Citrate [Xeljanz Xr] 11 mg PO DAILY 02/02/24 08/25/24 ARIPiprazole [Abilify] 5 mg PO HS 08/25/24 08/25/24 Ipratropium-Albuterol Nebulize 3 ml INHALATION RT-QID 08/25/24 08/25/24 [Duoneb 0.5 mg-3 mg/3 ml Soln] [place] Carbonate 600 mg PO HS 08/25/24 08/25/24 Omeprazole 20 mg PO DAILY 08/25/24 08/25/24 Rosuvastatin [Crestor] 20 mg PO DAILY 08/25/24 08/25/24 Tiotropium 2.5 Mcg/Puff [Spiriva 2 puff INHALATION RT-DAILY 08/25/24 08/25/24 Respimat 2.5 Mcg] Allergies Allergy/AdvReac Type Severity Reaction Status Date / Time divalproex sodium AdvReac Nausea & Verified 08/25/24 00:02 [From Depakote] Vomiting haloperidol [From Haldol] AdvReac Nausea & Verified 08/25/24 00:02 Vomiting haloperidol lactate AdvReac Nausea & Verified 08/25/24 00:02 [From Haldol] Vomiting Penicillins AdvReac Nausea & Verified 08/25/24 00:02 Vomiting Review of Systems ROS Statement: Those systems with pertinent positive or pertinent negative responses have been documented in the HPI. ROS Other: All systems not noted in ROS Statement are negative. Past Medical History Past Medical History: COPD, Fibromyalgia, GERD/Reflux, Hyperlipidemia, Hypertension, Rheumatoid Arthritis (RA), Skin Disorder Additional Past Medical History / Comment(s): See Dr Hdez's H&P. Ulcerative colitis. Constipation. HX FRACTURED SKULL FROM A FALL, hx fractures of arms and hands. Psorasis. Poor circulation. Hx kidney stones. Migraines. Issues with vasovagal response with coughing. Vertigo. History of Any Multi-Drug Resistant Organisms: MRSA Date of last positivie culture/infection: 01/23/2015 MDRO Source:: Left Axilla Past Surgical History: Prostate Surgery Additional Past Surgical History / Comment(s): Right carpal tunnel, right lung biopsy, EGD. Past Anesthesia/Blood Transfusion Reactions: No Reported Reaction Additional Past Anesthesia/Blood Transfusion Reaction / Comment(s): No family hx known - adopted. Past Psychological History: Anxiety, Bipolar, Depression, Panic Disorder Smoking Status: Current every day smoker Past Alcohol Use History: None Reported Past Drug Use History: None Reported - Past Family History Daughter(s) Family Medical History: No Reported History Additional Family Medical History / Comment(s): Patient states adopted at age 2, no known family hx. Patient states 2 daughters and 1 son removed from his care by the state, does not know any family hx. General Exam - General Exam Comments Initial Comments: PE: CONSTITUTIONAL: Moderate distress, ill-appearing, leaning forward sitting on edge of bed SKIN: Mild cyanosis of lips, cool, dry, no jaundice, hives or petechiae EYES: Pupils are equally round, extraocular movements intact without nystagmus, clear conjunctiva, non-icteric sclera HENT: Normocephalic, atraumatic, moist mucus membranes, oropharynx clear without exudates NECK: , Full range of motion, normal appearance PULMONARY: Wheezes and rhonchi present in all lung singleton, decreased excrusion, +accessory muscle use, no stridor, no rales or crackles CARDIOVASCULAR: Tachycardia regular rate, rhythm, normal S1 and S2. No appreciated murmurs, rubs or gallops. Strong radial pulses with intact distal perfusion. No lower extremity edema GASTROINTESTINAL: Soft, active bowel sounds throughout, non-tender, non- distended, no palpable masses, no rebound or guarding. No hepatosplenomegaly MUSCULOSKELETAL: Extremities have no gross deformity, no edema, redness, or swelling. No calf swelling NEUROLOGIC:_a/o x 3, GCS 15, normal mentation and speech. Moves all extremities x 4 without motor or sensory deficit PSYCHIATRIC:_anxious mood and affect, thought process is clear and linear Limitations: no limitations Course Vital Signs 08/24/24 08/25/24 08/25/24 23:59 00:07 00:11 Temperature 98.4 F Pulse Rate 96 Respiratory 22 24 Rate Blood Pressure 147/96 O2 Sat by Pulse 88 L Oximetry Fraction of 100 Inspired Oxygen (FIO2) 08/25/24 08/25/24 08/25/24 00:26 00:27 00:30 Temperature Pulse Rate 101 H Respiratory Rate Blood Pressure O2 Sat by Pulse Oximetry Fraction of 80 60 Inspired Oxygen (FIO2) 08/25/24 08/25/24 08/25/24 00:37 00:47 00:49 Temperature Pulse Rate 98 101 H 99 Respiratory 27 H Rate Blood Pressure 153/97 O2 Sat by Pulse 97 Oximetry Fraction of Inspired Oxygen (FIO2) 08/25/24 08/25/24 08/25/24 00:57 01:30 02:18 Temperature Pulse Rate 104 H 98 Respiratory 24 Rate Blood Pressure 142/94 O2 Sat by Pulse 97 Oximetry Fraction of 40 Inspired Oxygen (FIO2) 08/25/24 02:26 Temperature Pulse Rate 97 Respiratory Rate Blood Pressure O2 Sat by Pulse Oximetry Fraction of Inspired Oxygen (FIO2) EKG Findings - EKG Comments: EKG Findings:: EKG and rotation, limited by artifact, sinus tach tachycardia rate 100 bpm OH interval 166 ms QRS duration 91 ms, QT/QTc 326/3 to 3 ms, normal axis, no obvious ST elevations or depressions, compared to EKG performed on 09/23/2023 no significant changes from prior Medical Decision Making - Medical Decision Making Was pt. sent in by a medical professional or institution (, PA, AIR TUBE RELEASER, urgent care, hospital, or fpc...) When possible be specific @ -No Did you speak to anyone other than the patient for history (EMS, parent, family, police, friend...)? What history was obtained from this source @ -No Did you review nursing and triage notes (agree or disagree)? Why? @ -I reviewed and agree with nursing and triage notes Were old charts reviewed (outside hosp., previous admission, EMS record, old EKG, old radiological studies, urgent care reports/EKG's, fpc records)? Report findings @ -Medical records reviewed Differential Diagnosis (chest pain, altered mental status, abdominal pain women, abdominal pain men, vaginal bleeding, weakness, fever, dyspnea, syncope, headache, dizziness, GI bleed, back pain, seizure, CVA, palpatations, mental health, musculoskeletal)? @Differential Dyspnea: Coronary syndrome, arrhythmia, tamponade, asthma, COPD, pneumonia, pneumothorax, pulmonary effusion, anaphylaxis, diabetic ketoacidosis, anemia, neuromuscular, this is not meant to be an all-inclusive list. EKG interpreted by me (3pts min.). @ -As above X-rays interpreted by me (1pt min.) @Hyperinflation, large pleural bleb left lung, no pneumothorax; no obvious consolidations CT interpreted by me (1pt min.). @ -None done U/S interpreted by me (1pt. min.). @ -None done What testing was considered but not performed or refused? (CT, X-rays, U/S, labs)? Why? @ -None What meds were considered but not given or refused? Why? @I did consider Precedex infusion for continued anxiolysis on BiPAP however would require ICU admission and patient ultimately responded to Ativan Did you discuss the management of the patient with other professionals (professionals i.e. , PA, AIR TUBE RELEASER, lab, RT, psych nurse, social science teacher, child life therapist, teacher, radiation officer, child support case officer)? Give summary @Case was discussed with Dr. Donohue, please see his recommendations below Was smoking cessation discussed for >3mins.? @ -No Was critical care preformed (if so, how long)? @Yes, 60 minutes Were there social determinants of health that impacted care today? How? (Homelessness, low income, unemployed, alcoholism, drug addiction, transportation, low edu. Level, literacy, decrease access to med. care, fpc, rehab)? @ -No Was there de-escalation of care discussed even if they declined (Discuss DNR or withdrawal of care, Hospice)? @ -No What co-morbidities impacted this encounter? (DM, HTN, Smoking, COPD, CAD, Cancer, CVA, ARF, Chemo, Hep., AIDS, mental health diagnosis, sleep apnea, morbid obesity)? @CAD, COPD, current smoker, hypertension Was patient admitted / discharged? Hospital course, mention meds given and route, prescriptions, significant lab abnormalities, going to OR and other pertinent info. @ -@Admission= Patient is a 54-year-old gentleman presenting today for shortness of breath, hi story of COPD. Patient roomed upon arrival due to pulse ox of 88% on room air and increased work of breathing. On my assessment patient is tripoding, diffuse wheezes and rhonchi bilaterally. Mild cyanosis of his lips. Patient immediately placed on BiPAP, steroids, nebulizers ordered. IV access obtained. Pt did endorse to RN claustrophobia so ativan was ordered to help pt tolerate bipap. Patient appeared more comfortable and work of breathing improved on reassessment. Labs reviewed, significant for leukocytosis WBC count 19.6, however this could also be 2/2 steroid administration vs infectious etiology. CXR shows emphysematous changes and large blebs. Patient again more anxious and requesting BiPAP to be removed. He continues to have wheezing bilaterally despite [id number] nebulizer treatments. I discussed with him administering additional medication to help him remain calm and the importance of keeping his BiPAP on out of concern that he would require intubation and ventilator should he remove it and continue to worsen, due to severity of his exacerbation. Additional dose of Ativan ordered. I was called to bedside when RN noted patient to remove his BiPAP mask. On my assessment patient is again tripoding, lips are cyanotic, he has diffuse wheezing bilaterally, received in [facility] about 1 hour ago. Pulse ox went down to 69%. Patient placed back on BiPAP. Patient continued to tolerate BiPAP. Due to severity of patient's COPD exacerbation I will reach out to Dr. Donohue, critical care, to discuss ICU admission for close monitoring. Case discussd w/ Dr. Donohue, he will check into ICU bed status, requests blood gas be obtained. ABG obtained and reflected elevated CO2 ~68, pH 7.29 consistent with respiratory acidosis. IPAP increased to [address] Donohue will see patient in the morning and decide on ICU placement from there. On reassessment patient sleeping comfortably, again tolerating biapp. Pt accepted for admission to [facility], admitted in stable condition. Undiagnosed new problem with uncertain prognosis? @ -No Drug Therapy requiring intensive monitoring for toxicity (Heparin, Nitro, Insulin, Cardizem)? @ -No Were any procedures done? @ -No Diagnosis/symptom? @COPD exacerbation, Acute hypoxemic and hypercapneic respiratory failure Acute, or Chronic, or Acute on Chronic? @acute Uncomplicated (without systemic symptoms) or Complicated (systemic symptoms)? complicated Side effects of treatment? @ -No Exacerbation, Progression, or Severe Exacerbation? @ -No Poses a threat to life or bodily function? How? (Chest pain, USA, DC, pneumonia, PE, COPD, DKA, ARF, appy, cholecystitis, CVA, Diverticulitis, Homicidal, Suicidal, threat to staff... and all critical care pts) @Yes, if let un addressed pt could experience fulminant respiratory failure and - Lab Data Result diagrams: 08/25/24 00:19 08/25/24 00:19 Lab Results 08/25/24 08/25/24 08/25/24 Range/Units 00:19 00:19 00:19 WBC 19.6 H (3.8-10.6) k/uL RBC 4.90 (4.30-5.90) m/uL Hgb 15.5 (13.0-17.5) gm/dL Hct 47.6 (39.0-53.0) % MCV 97.1 (80.0-100.0) fL MCH 31.5 (25.0-35.0) pg MCHC 32.5 (31.0-37.0) g/dL RDW 13.4 (11.5-15.5) % Plt Count 382 (150-450) k/uL MPV 7.0 Neutrophils % 81 % Lymphocytes % 11 % Monocytes % 6 % Eosinophils % 1 % Basophils % 0 % Neutrophils # 15.9 H (1.3-7.7) k/uL Lymphocytes # 2.1 (1.0-4.8) k/uL Monocytes # 1.1 H (0-1.0) k/uL Eosinophils # 0.2 (0-0.7) k/uL Basophils # 0.1 (0-0.2) k/uL PT 10.0 (10.0-12.5) sec INR 0.9 (<1.2) APTT 22.5 (22.0-30.0) sec Sodium 141 (137-145) mmol/L Potassium 4.5 (3.5-5.1) mmol/L Chloride 101 (98-107) mmol/L Carbon Dioxide 33 H (22-30) mmol/L Anion Gap 7 mmol/L BUN 19 (9-20) mg/dL Creatinine 0.67 (0.66-1.25) mg/dL Est GFR (CKD-EPI)AfAm >90 (>60 ml/min/1.73 sqM) Est GFR (CKD-EPI)NonAf >90 (>60 ml/min/1.73 sqM) Glucose 118 H (74-99) mg/dL Calcium 9.9 (8.4-10.2) mg/dL Magnesium 2.1 (1.6-2.3) mg/dL Total Bilirubin 0.4 (0.2-1.3) mg/dL AST 28 (17-59) U/L ALT 30 (4-49) U/L Alkaline Phosphatase 133 H (38-126) U/L Troponin I (0.000-0.034) ng/mL NT-Pro-B Natriuret Pep 101 pg/mL Total Protein 7.2 (6.3-8.2) g/dL Albumin 4.7 (3.5-5.0) g/dL Procalcitonin (0.02-0.50) ng/mL 08/25/24 08/25/24 Range/Units 00:19 00:19 WBC (3.8-10.6) k/uL RBC (4.30-5.90) m/uL Hgb (13.0-17.5) gm/dL Hct (39.0-53.0) % MCV (80.0-100.0) fL MCH (25.0-35.0) pg MCHC (31.0-37.0) g/dL RDW (11.5-15.5) % Plt Count (150-450) k/uL MPV Neutrophils % % Lymphocytes % % Monocytes % % Eosinophils % % Basophils % % Neutrophils # (1.3-7.7) k/uL Lymphocytes # (1.0-4.8) k/uL Monocytes # (0-1.0) k/uL Eosinophils # (0-0.7) k/uL Basophils # (0-0.2) k/uL PT (10.0-12.5) sec INR (<1.2) APTT (22.0-30.0) sec Sodium (137-145) mmol/L Potassium (3.5-5.1) mmol/L Chloride (98-107) mmol/L Carbon Dioxide (22-30) mmol/L Anion Gap mmol/L BUN (9-20) mg/dL Creatinine (0.66-1.25) mg/dL Est GFR (CKD-EPI)AfAm (>60 ml/min/1.73 sqM) Est GFR (CKD-EPI)NonAf (>60 ml/min/1.73 sqM) Glucose (74-99) mg/dL Calcium (8.4-10.2) mg/dL Magnesium (1.6-2.3) mg/dL Total Bilirubin (0.2-1.3) mg/dL AST (17-59) U/L ALT (4-49) U/L Alkaline Phosphatase (38-126) U/L Troponin I <0.012 (0.000-0.034) ng/mL NT-Pro-B Natriuret Pep pg/mL Total Protein (6.3-8.2) g/dL Albumin (3.5-5.0) g/dL Procalcitonin 0.03 (0.02-0.50) ng/mL Disposition Clinical Impression: Acute exacerbation of chronic obstructive pulmonary disease, Acute respiratory failure with hypoxia and hypercapnia Disposition: ADMITTED IP TO THIS HOSP Condition: Stable
[2024-08-25] MEDS: AZITHROMYCIN 500 MG in SODIUM CHLORIDE 0.9% 250 ML IVPB STA (01:28)
[2024-08-25] MEDS: IPRATROPIUM-ALBUTEROL 3 ML NEB INHALATION STA ×2 (02:17→03:28)
[2024-08-25] MEDS ORDERED: ACETAMINOPHEN TAB 325 MG TAB PO PRN (02:33)
[2024-08-25] MEDS ORDERED: NALOXONE 0.4 MG/ML 1 ML VIAL IVP PRN (02:33)
[2024-08-25] MEDS ORDERED: IPRATROPIUM-ALBUTEROL 3 ML NEB INHALATION PRN (02:33)
[2024-08-25] MEDS ORDERED: HYDROcodone/APAP 5-325MG 1 EACH TAB PO PRN (02:33)
--- NOTE | 2024-08-25 03:25 | XR ---
EXAM: XR Chest, 1 View CLINICAL HISTORY: ITS.REASON XR Reason: COPD exacerbation TECHNIQUE: Frontal view of the chest. COMPARISON: No relevant prior studies available. FINDINGS: Lungs: Extensive bullous changes in the upper lung singleton, severely involving the LEFT upper lung. Bilateral lungs RIGHT side atelectasis, preferentially involving the lower lung singleton. Pleural space: Unremarkable. No pneumothorax. Heart: Unremarkable. No cardiomegaly. Mediastinum: Unremarkable. Normal mediastinal contour. Bones/joints: Unremarkable. No acute fracture. IMPRESSION: Extensive bullous changes in the upper lung singleton, severely involving the LEFT upper lung.
[2024-08-25 03:54] LABS: ABG Base Excess 3.2 mmol/L; ABG HCO3 32 mmol/L (21-25); ABG PCO2 68 mmHg (35-45); ABG PH 7.29 (7.35-7.45); ABG PO2 263 mmHg (83-108); ABG TCO2 34 mmol/L (19-24); Allen Test Performed? Yes
[2024-08-25 05:02] LABS: VBG PH 7.34 (7.31-7.41)
[2024-08-25] MEDS: methylPREDNISolone SOD SUCCI 125 MG/2 ML VIAL IV SCH (06:10)
[2024-08-25] MEDS: IPRATROPIUM-ALBUTEROL 3 ML NEB INHALATION SCH (07:59)
[2024-08-25] MEDS: ENOXAPARIN 40 MG/0.4 ML SYRINGE SQ SCH (08:20)
[2024-08-25] MEDS: NICOTINE 14MG/24HR PATCH TRANSDERM SCH (08:20)
[2024-08-25] MEDS: busPIRone HCl 10 MG TAB PO SCH (08:20)
[2024-08-25] MEDS: DOXYCYCLINE 100 MG CAP PO SCH (08:20)
--- NOTE | 2024-08-25 10:09 | P.HPIM ---
History of Present Illness 52-year-old male with extensive history of smoking and history of COPD came in with a complaint of shortness of breath found to have significant wheezing. Patient is admitted for COPD exacerbation patient was on BiPAP at this time. P atient has severe respiratory failure. Patient has extensive wheezing on exam. Chest x-ray did not show any pneumonia. Pro-Mohinder was ordered which is pending. Patient apparently had a sore throat at home before he came in readily hemoptysis complaining of cough without any significant sputum production. Patient was given Rocephin and azithromycin but this did not continued patient is only on doxycycline at this time and systemic steroids along with breathing treatments. Chest x-ray showed extensive emphysema without pneumonia REVIEW OF SYSTEMS: All other systems are negative except those mentioned in the HPI PHYSICAL EXAMINATION: GENERAL: The patient is alert and oriented x3, is in respiratory distress extensive bilateral bilateral wheezing HEENT: Pupils are round and equally reacting to light. EOMI. No scleral icterus. No conjunctival pallor. Normocephalic, atraumatic. No pharyngeal erythema. No thyromegaly. CARDIOVASCULAR: S1 and S2 present. No murmurs, rubs, or gallops. PULMONARY: Significant wheezing bilaterally ABDOMEN: Soft, nontender, nondistended, normoactive bowel sounds. No palpable organomegaly. MUSCULOSKELETAL: No joint swelling or deformity. EXTREMITIES: No cyanosis, clubbing, or pedal edema. NEUROLOGICAL: Gross neurological examination did not reveal any focal deficits. SKIN: No rashes. Assessment and plan -Acute hypercapnic respiratory failure secondary to COPD exacerbation continue BiPAP wean off as tolerated to continue with systemic steroids inhalational treatments. -Gastroesophageal flux disease -Rheumatoid arthritis for which patient is on Plaquenil -Hyperlipidemia -Hypertension Problem mentioned chronic medical problems patient will be resumed on appropriate home medications once verified DVT prophylaxis: Lovenox Past Medical History Past Medical History: COPD, Fibromyalgia, GERD/Reflux, Hyperlipidemia, Hypertension, Rheumatoid Arthritis (RA), Skin Disorder Additional Past Medical History / Comment(s): See Dr Hdez's H&P. Ulcerative colitis. Constipation. HX FRACTURED SKULL FROM A FALL, hx fractures of arms and hands. Psorasis. Poor circulation. Hx kidney stones. Migraines. Issues with vasovagal response with coughing. Vertigo. History of Any Multi-Drug Resistant Organisms: MRSA Date of last positivie culture/infection: 01/23/2015 MDRO Source:: Left Axilla Past Surgical History: Prostate Surgery Additional Past Surgical History / Comment(s): Right carpal tunnel, right lung biopsy, EGD. Past Anesthesia/Blood Transfusion Reactions: No Reported Reaction Additional Past Anesthesia/Blood Transfusion Reaction / Comment(s): No family hx known - adopted. Past Psychological History: Anxiety, Bipolar, Depression, Panic Disorder Smoking Status: Current every day smoker Past Alcohol Use History: None Reported Past Drug Use History: None Reported - Past Family History Daughter(s) Family Medical History: No Reported History Additional Family Medical History / Comment(s): Patient states adopted at age 2, no known family hx. Patient states 2 daughters and 1 son removed from his care by the state, does not know any family hx. Medications and Allergies Home Medications Medication Instructions Recorded Confirmed Type amLODIPine [Norvasc] 5 mg PO DAILY 01/23/15 02/06/24 History Albuterol Inhaler [Ventolin Hfa 2 puff INHALATION Q4-6H PRN 09/23/23 02/06/24 History Inhaler] Budesonide/Formoterol Fumarate 2 puff INHALATION RT-BID 09/23/23 02/06/24 History [Symbicort 160-4.5 Mcg Inhaler] DULoxetine HCL [Cymbalta] 60 mg PO DAILY 09/23/23 02/06/24 History Ergocalciferol [Vitamin D2 (1250 1,250 mcg PO TH 09/23/23 02/06/24 History Mcg = 62499 Iu)] Hydroxychloroquine Sulfate 200 mg PO BID 09/23/23 02/06/24 History [Plaquenil] Tiotropium [place] [Spiriva] 1 puff INHALATION QAM 09/23/23 02/06/24 History busPIRone HCl [Buspar] 10 mg PO BID 09/23/23 02/06/24 History Aspirin [Adult Low Dose Aspirin EC] 81 mg PO DAILY 02/02/24 02/06/24 History Losartan [Cozaar] 25 mg PO DAILY 02/02/24 02/06/24 History Metoprolol Tartrate 25 mg PO BID 02/02/24 02/06/24 History Omeprazole [PriLOSEC] 20 mg PO DAILY 02/02/24 02/06/24 History Tofacitinib Citrate [Xeljanz Xr] 11 mg PO DAILY 02/02/24 02/06/24 History Allergies Allergy/AdvReac Type Severity Reaction Status Date / Time divalproex sodium AdvReac Nausea & Verified 08/25/24 00:02 [From Depakote] Vomiting haloperidol [From Haldol] AdvReac Nausea & Verified 08/25/24 00:02 Vomiting haloperidol lactate AdvReac Nausea & Verified 08/25/24 00:02 [From Haldol] Vomiting Penicillins AdvReac Nausea & Verified 08/25/24 00:02 Vomiting Physical Exam Vitals: Vital Signs Temp Pulse Resp BP Pulse Ox FiO2 08/25/24 08:08 100 08/25/24 08:01 40 08/25/24 07:59 101 H 08/25/24 06:16 92 20 129/85 97 08/25/24 04:02 93 24 119/91 99 08/25/24 03:59 40 08/25/24 03:39 98 08/25/24 03:30 98 100 08/25/24 02:26 97 08/25/24 02:18 98 08/25/24 01:30 104 H 24 142/94 97 08/25/24 00:57 40 08/25/24 00:49 99 27 H 153/97 97 08/25/24 00:47 101 H 08/25/24 00:37 98 08/25/24 00:30 60 08/25/24 00:27 80 08/25/24 00:26 101 H 08/25/24 00:11 100 08/25/24 00:07 24 08/24/24 23:59 98.4 F 96 22 147/96 88 L Intake and Output 08/24/24 08/25/24 08/25/24 22:59 06:59 14:59 Other: Weight 94.801 kg Results CBC & Chem 7: 08/25/24 00:19 08/25/24 00:19 Labs: Abnormal Lab Results - Last 24 Hours (Table) 08/25/24 08/25/24 08/25/24 Range/Units 00:19 00:19 03:50 WBC 19.6 H (3.8-10.6) k/uL Neutrophils # 15.9 H (1.3-7.7) k/uL Monocytes # 1.1 H (0-1.0) k/uL ABG pH 7.29 L (7.35-7.45) ABG pCO2 68 H (35-45) mmHg ABG pO2 263 H (83-108) mmHg ABG HCO3 32 H (21-25) mmol/L ABG Total CO2 34 H (19-24) mmol/L ABG O2 Saturation 100.0 H (94-97) % VBG pCO2 (37-51) mmHg VBG HCO3 (24-28) mmol/L Carbon Dioxide 33 H (22-30) mmol/L Glucose 118 H (74-99) mg/dL Alkaline Phosphatase 133 H (38-126) U/L 08/25/24 Range/Units 04:34 WBC (3.8-10.6) k/uL Neutrophils # (1.3-7.7) k/uL Monocytes # (0-1.0) k/uL ABG pH (7.35-7.45) ABG pCO2 (35-45) mmHg ABG pO2 (83-108) mmHg ABG HCO3 (21-25) mmol/L ABG Total CO2 (19-24) mmol/L ABG O2 Saturation (94-97) % VBG pCO2 57 H (37-51) mmHg VBG HCO3 31 H (24-28) mmol/L Carbon Dioxide (22-30) mmol/L Glucose (74-99) mg/dL Alkaline Phosphatase (38-126) U/L
[2024-08-25] MEDS: DULoxetine HCL 60 MG CAPSULE.DR PO SCH (11:52)
[2024-08-25 12:02] VITALS: BP 124/74; PULSE 96; RESP 19; TEMP 98.2
--- NOTE | 2024-08-25 14:56 | CONS ---
CONSULTATION HISTORY OF PRESENT ILLNESS: This is a 54-year-old male, who looks much older than his stated age, who is seen in the emergency department, ER trauma room. The patient came into the emergency department, on August 24, right before midnight, complaining of increasing shortness of breath. The patient does have a history of COPD, and currently he is smoking. The patient was evaluated in the emergency department by Dr. Mccarthy, who called me early in the morning to let me know about this patient. She was concerned that the patient may need an ICU bed. The patient was placed on BiPAP, and was on BiPAP at 15/5 and 40%. We saw the patient in the emergency department. The patient was having sinus tachycardia. He did have some expiratory wheezes as well. There was no IV fluids running. The patient was on DuoNeb, Symbicort, Solu-Medrol, and doxycycline. We felt the patient was stable to be admitted to the [address] [place] [address]. MEDICAL HISTORY: Includes COPD, fibromyalgia, gastroesophageal reflux disease, hyperlipidemia, hypertension, and rheumatoid arthritis. The patient apparently also has a history of ulcerative colitis, and a previous history of fractured skull from a fall. The patient does have a history of ongoing tobacco use, with nicotine addiction. He also suffers from anxiety, depression, and bipolar disorder. LABORATORY DATA: Includes a white count of 19.6, hemoglobin 15.5, hematocrit 47.6, and a platelet count of 383,000. The patient had a PT of 10, INR of 0.9. PTT was 22.5. Venous blood gas showed a pCO2 of 57 and pH of 7.34. An arterial blood gas showed a pO2 of 283, pCO2 of 68, pH of 7.39, that was on 100% oxygen. Sodium 141, potassium 4.5, chloride 101, CO2 of 33, BUN 19, and creatinine 0.67. The rest of the comprehensive metabolic profile looks relatively normal. PHYSICAL EXAMINATION: VITAL SIGNS: Temperature 98.2, heart rate 102, respiratory rate 20, blood pressure 124/74 with a mean of 90 and saturation of 97% on BiPAP. GENERAL: The patient appeared in no acute distress. Initially, he was fighting the BiPAP, according to the ER physician. HEENT: Grossly unremarkable. BiPAP mask in place. NECK: Supple. Full range of motion. No adenopathy. Neck veins are flat. CARDIOVASCULAR: Reveals regular rhythm and rate. Heart rate about 102 beats per minute. S1, S2 normal. Heart sounds are distant. LUNGS: Reveal some high-pitched expiratory wheezes. No rhonchi or crackles. ABDOMEN: Soft. Bowel sounds are heard. EXTREMITIES: Intact. No cyanosis, clubbing, or edema. SKIN: Without rash. NEUROLOGIC: Brief, but nonfocal. Laboratory data has already been noted. Chest x-ray shows extensive bilateral upper lobe bullous disease. It is much worse on the left side than on the right. MEDICATIONS: Reviewed and includes: 1. Albuterol sulfate. 2. Ipratropium bromide. 3. Symbicort. 4. Solu-Medrol. 5. Doxycycline. Procalcitonin level was ordered. ASSESSMENT: 1. Acute hypoxemic and hypercapnic respiratory failure, secondary to chronic obstructive pulmonary disease exacerbation. 2. Ongoing tobacco use with nicotine addiction. 3. History of hyperlipidemia. 4. History of hypertension. 5. History of rheumatoid arthritis. 6. History of gastroesophageal reflux disease. 7. History of fibromyalgia. 8. History of ulcerative colitis. 9. History of fractured skull from a fall. 10.History of psoriasis. 11.History of vertigo. 12.History of migraine, cephalgia. 13.History of previous MRSA infection. 14.History of previous prostate surgery. 15.History of anxiety/depression, and bipolar disorder. PLAN: The patient should be admitted, to [address] [place] [address]. The patient should be on albuterol sulfate and ipratropium bromide. The patient should also get Solu-Medrol 60 mg q.6 hours. The patient will be given Symbicort 160/4.5, two puffs twice a day. Doxycycline was started by the emergency department physician. A procalcitonin level was ordered. If normal, doxycycline should be discontinued. The patient should be offered a nicotine patch. The patient is counseled about the importance of smoking cessation. The patient's overall prognosis remains poor. We will continue to follow. MMODL / IJN: [id number] /
[2024-08-25] MEDS ORDERED: methylPREDNISolone SOD SUCCI 40 MG/ML 1 ML VIAL IV SCH (16:00)
[2024-08-25] MEDS ORDERED: SYMBICORT 160-4.5 MCG INHALER INHALATION SCH (20:00)
--- NOTE | 2024-10-05 12:37 | P.DS ---
Providers Date of admission: 08/25/24 07:35 Attending physician: Denny Richardson Consults: 08/25/24 02:33 Consult Physician Routine Consulting Provider: Oliverio Donohue Consult Reason/Comments: COPD Do you want consulting provider notified?: Yes, Notify in am Primary care physician: [facility] Hospital Course: Patient left AGAINST MEDICAL ADVICE Patient Condition at Discharge: Stable Plan - Discharge Summary Discharge Rx Participant: Yes New Discharge Prescriptions: No Action amLODIPine [Norvasc] 5 mg PO DAILY busPIRone HCl [Buspar] 10 mg PO BID DULoxetine HCL [Cymbalta] 60 mg PO DAILY Budesonide/Formoterol Fumarate [Symbicort 160-4.5 Mcg Inhaler] 2 puff INHALATION RT-BID Albuterol Inhaler [Ventolin Hfa Inhaler] 2 puff INHALATION RT-Q4H PRN PRN Reason: Shortness Of Breath Tofacitinib Citrate [Xeljanz Xr] 11 mg PO DAILY Aspirin [Adult Low Dose Aspirin EC] 81 mg PO DAILY Hydroxychloroquine Sulfate [Plaquenil] 200 mg PO BID Metoprolol Tartrate 25 mg PO BID Losartan [Cozaar] 25 mg PO DAILY ARIPiprazole [Abilify] 5 mg PO HS Ipratropium-Albuterol Nebulize [Duoneb 0.5 mg-3 mg/3 ml Soln] 3 ml INHALATION RT-QID [place] Carbonate 600 mg PO HS Omeprazole 20 mg PO DAILY Rosuvastatin [Crestor] 20 mg PO DAILY Tiotropium 2.5 Mcg/Puff [Spiriva Respimat 2.5 Mcg] 2 puff INHALATION RT-DAILY Cyclobenzaprine [Flexeril] 5 mg PO TID PRN #15 tablet PRN Reason: Muscle Spasm Discharge Medication List amLODIPine [Norvasc] 5 mg PO DAILY 01/23/15 [History] Albuterol Inhaler [Ventolin Hfa Inhaler] 2 puff INHALATION RT-Q4H PRN 09/23/23 [History] Budesonide/Formoterol Fumarate [Symbicort 160-4.5 Mcg Inhaler] 2 puff INHALATION RT-BID 09/23/23 [History] DULoxetine HCL [Cymbalta] 60 mg PO DAILY 09/23/23 [History] Hydroxychloroquine Sulfate [Plaquenil] 200 mg PO BID 09/23/23 [History] busPIRone HCl [Buspar] 10 mg PO BID 09/23/23 [History] Aspirin [Adult Low Dose Aspirin EC] 81 mg PO DAILY 02/02/24 [History] Losartan [Cozaar] 25 mg PO DAILY 02/02/24 [History] Metoprolol Tartrate 25 mg PO BID 02/02/24 [History] Tofacitinib Citrate [Xeljanz Xr] 11 mg PO DAILY 02/02/24 [History] ARIPiprazole [Abilify] 5 mg PO HS 08/25/24 [History] Ipratropium-Albuterol Nebulize [Duoneb 0.5 mg-3 mg/3 ml Soln] 3 ml INHALATION RT-QID 08/25/24 [History] [place] Carbonate 600 mg PO HS 08/25/24 [History] Omeprazole 20 mg PO DAILY 08/25/24 [History] Rosuvastatin [Crestor] 20 mg PO DAILY 08/25/24 [History] Tiotropium 2.5 Mcg/Puff [Spiriva Respimat 2.5 Mcg] 2 puff INHALATION RT-DAILY 08/25/24 [History] Cyclobenzaprine [Flexeril] 5 mg PO TID PRN #15 tablet 09/27/24 [Rx] Follow up Appointment(s)/Referral(s): Mary Cary MD [Primary Care Provider] - 1-2 days Discharge Disposition: LEFT AGAINST MEDICAL ADVICE
== END 2024-08-25 13:34 | disposition left against medical advice (07) ==
LOC: EC 23:55 → 3SCARD 08-25 02:33 → UNDOADMOB 08-25 02:36 → OBSVTOIN 08-25 07:35 → INTOOBSV 08-25 07:35 → 3SCARD 08-25 11:17 → UNDODISOB 08-25 13:34
PROVIDERS: ADMIT Hospitalist; ATTEND Hospitalist
DX: J44.1 Chronic obstructive pulmonary disease with (acute) exacerbation (principal); J96.01 Acute respiratory failure with hypoxia; J96.02 Acute respiratory failure with hypercapnia; E78.5 Hyperlipidemia, unspecified; F17.200 Nicotine dependence, unspecified, uncomplicated; F31.9 Bipolar disorder, unspecified; F41.0 Panic disorder [episodic paroxysmal anxiety]; G43.909 Migraine, unspecified, not intractable, without status migrainosus; I10 Essential (primary) hypertension; I25.10 Atherosclerotic heart disease of native coronary artery without angina pectoris; K21.9 Gastro-esophageal reflux disease without esophagitis; M06.9 Rheumatoid arthritis, unspecified; M79.7 Fibromyalgia; Z53.29 Procedure and treatment not carried out because of patient's decision for other reasons; Z79.51 Long term (current) use of inhaled steroids; Z79.82 Long term (current) use of aspirin; Z79.899 Other long term (current) drug therapy; Z86.14 Personal history of Methicillin resistant Staphylococcus aureus infection; Z88.0 Allergy status to penicillin; Z88.8 Allergy status to other drugs, medicaments and biological substances
CPT/HCPCS: 96376; 96368; 96365; 96366; 96372; 96375; 99291; 36415; 94660; 94640 ×2; 36600; 93005; 83880; 80053; 82805; 82803; 83735; 84484; 85025; 85610; 85730; 84145; 71045; G0378; S4990; J2060; J0456; J1650; J0696; J2919; 99285

== ENCOUNTER → 2024-10-25 | Outpatient (CLI) | payer OTHER ==
--- NOTE | 2024-10-25 15:23 | US ---
EXAMINATION TYPE: US groin RT DATE OF EXAM: 10/25/2024 COMPARISON: NONE CLINICAL INDICATION: Male, 54 years old with history of R10.31 R GROIN PAIN M79.651 R THIGH PAIN; Fel l 1 month ago, right groin pain since TECHNIQUE: Grayscale imaging the area of concern. FINDINGS: No abnormalities in patients AOC. Rounded area of suspected muscle noted in the images. No organizing fluid collection or mass definitely visualized. There remains concern consider MRI imagin g. IMPRESSION: No evidence for organizing fluid collection mass. There remains concern consider MRI. [facility], , 10/25/2024 3:21 PM
== END | disposition home or self-care (01) ==
LOC: RADUSWWP 14:54
PROVIDERS: ATTEND Family Medicine
DX: R10.31 Right lower quadrant pain (principal); M79.651 Pain in right thigh

== ENCOUNTER 2024-11-03 20:01 | Emergency (ER) | payer OTHER ==
[2024-11-03 20:17] VITALS: RESP 20; TEMP 98
[2024-11-03 21:07] LABS: Influenza A Not Detected (Not Detectd); Influenza B Not Detected (Not Detectd); RSV Not Detected (Not Detectd)
--- NOTE | 2024-11-03 21:08 | XR ---
EXAMINATION TYPE: XR chest 2V DATE OF EXAM: 11/03/2024 8:28 PM COMPARISON: Chest radiographs from 08/25/2024 CLINICAL INDICATION: Male, 54 years old with history of cough; [facility] TECHNIQUE: XR chest 2V Frontal and lateral views of the chest. FINDINGS: Lungs/Pleura: Large bullous emphysema predominantly in the left upper lung. Rightperihilar air space opacities noted There is no evidence of pleural effusion, focal consolidation, or pneumothorax. Pulmonary vascularity: Unremarkable. Heart/mediastinum: Cardiomediastinal silhouette is unremarkable. Musculoskeletal: No acute osseous pathology. Other findings: None IMPRESSION: Perihilar airspace opacities in the right correlate for pneumonia. Large bullous emphysema in the lung apices, left greater than right. [facility], , 11/03/2024 9:05 PM
--- NOTE | 2024-11-03 22:18 | ED ---
URI HPI - General Chief Complaint: Upper Respiratory Infection Stated Complaint: VISHAL Time Seen by Provider: 11/03/24 21:51 Source: patient, RN notes reviewed, old records reviewed Mode of arrival: ambulatory Limitations: no limitations - History of Present Illness Initial Comments: This is a 54-year-old male to the ER for evaluation patient presents today for evaluation regards to dyspnea history of COPD on home O2 history of bullous emphysema, patient has had worsening shortness of breath cough with exertional dyspnea for 2 days MD Complaint: fever, cough -: days(s) Severity: moderate Severity scale (1-10): 4 Quality: sharp Consistency: constant Improves With: nothing Worsens With: nothing Treatments Prior to Arrival: none - Related Data Home Medications Medication Instructions Recorded Confirmed amLODIPine [Norvasc] 5 mg PO DAILY 01/23/15 08/25/24 Albuterol Inhaler [Ventolin Hfa 2 puff INHALATION RT-Q4H PRN 09/23/23 08/25/24 Inhaler] Budesonide/Formoterol Fumarate 2 puff INHALATION RT-BID 09/23/23 08/25/24 [Symbicort 160-4.5 Mcg Inhaler] DULoxetine HCL [Cymbalta] 60 mg PO DAILY 09/23/23 08/25/24 Hydroxychloroquine Sulfate 200 mg PO BID 09/23/23 08/25/24 [Plaquenil] busPIRone HCl [Buspar] 10 mg PO BID 09/23/23 08/25/24 Aspirin [Adult Low Dose Aspirin EC] 81 mg PO DAILY 02/02/24 08/25/24 Losartan [Cozaar] 25 mg PO DAILY 02/02/24 08/25/24 Metoprolol Tartrate 25 mg PO BID 02/02/24 08/25/24 Tofacitinib Citrate [Xeljanz Xr] 11 mg PO DAILY 02/02/24 08/25/24 ARIPiprazole [Abilify] 5 mg PO HS 08/25/24 08/25/24 Ipratropium-Albuterol Nebulize 3 ml INHALATION RT-QID 08/25/24 08/25/24 [Duoneb 0.5 mg-3 mg/3 ml Soln] [facility] Carbonate 600 mg PO HS 08/25/24 08/25/24 Omeprazole 20 mg PO DAILY 08/25/24 08/25/24 Rosuvastatin [Crestor] 20 mg PO DAILY 08/25/24 08/25/24 Tiotropium 2.5 Mcg/Puff [Spiriva 2 puff INHALATION RT-DAILY 08/25/24 08/25/24 Respimat 2.5 Mcg] Previous Rx's Medication Instructions Recorded Cyclobenzaprine [Flexeril] 5 mg PO TID PRN #15 tablet 09/27/24 Azithromycin [Zithromax] 500 mg PO DAILY #5 tab 11/03/24 Benzonatate [Tessalon Perles] 100 mg PO TID PRN #15 capsule 11/03/24 Allergies Allergy/AdvReac Type Severity Reaction Status Date / Time divalproex sodium AdvReac Nausea & Verified 11/03/24 20:17 [From Depakote] Vomiting haloperidol [From Haldol] AdvReac Nausea & Verified 11/03/24 20:17 Vomiting haloperidol lactate AdvReac Nausea & Verified 11/03/24 20:17 [From Haldol] Vomiting Penicillins AdvReac Nausea & Verified 11/03/24 20:17 Vomiting Review of Systems ROS Statement: Those systems with pertinent positive or pertinent negative responses have been documented in the HPI. ROS Other: All systems not noted in ROS Statement are negative. Past Medical History Past Medical History: COPD, Fibromyalgia, GERD/Reflux, Hyperlipidemia, Hypertension, Rheumatoid Arthritis (RA), Skin Disorder Additional Past Medical History / Comment(s): See Dr Hdez's H&P. Ulcerative colitis. Constipation. HX FRACTURED SKULL FROM A FALL, hx fractures of arms and hands. Psorasis. Poor circulation. Hx kidney stones. Migraines. Issues with vasovagal response with coughing. Vertigo. O2 PRN History of Any Multi-Drug Resistant Organisms: MRSA Date of last positivie culture/infection: 01/23/2015 MDRO Source:: Left Axilla Past Surgical History: Prostate Surgery Additional Past Surgical History / Comment(s): Right carpal tunnel, right lung biopsy, EGD. Past Anesthesia/Blood Transfusion Reactions: No Reported Reaction Additional Past Anesthesia/Blood Transfusion Reaction / Comment(s): No family hx known - adopted. Past Psychological History: Anxiety, Bipolar, Depression, Panic Disorder Smoking Status: Current every day smoker Past Alcohol Use History: None Reported Past Drug Use History: None Reported - Past Family History Daughter(s) Family Medical History: No Reported History Additional Family Medical History / Comment(s): Patient states adopted at age 2, no known family hx. Patient states 2 daughters and 1 son removed from his care by the state, does not know any family hx. General Exam Limitations: no limitations General appearance: alert, in no apparent distress Head exam: Present: atraumatic, normocephalic, normal inspection Eye exam: Present: normal appearance, PERRL, EOMI. Absent: scleral icterus, conjunctival injection, periorbital swelling ENT exam: Present: normal exam, mucous membranes moist Neck exam: Present: normal inspection. Absent: tenderness, meningismus, lymphadenopathy Respiratory exam: Present: normal lung sounds bilaterally. Absent: respiratory distress, wheezes, rales, rhonchi, stridor Cardiovascular Exam: Present: regular rate, normal rhythm, normal heart sounds. Absent: systolic murmur, diastolic murmur, rubs, gallop, clicks GI/Abdominal exam: Present: soft, normal bowel sounds. Absent: distended, tenderness, guarding, rebound, rigid Extremities exam: Present: normal inspection, full ROM, normal capillary refill. Absent: tenderness, pedal edema, joint swelling, calf tenderness Back exam: Present: normal inspection Neurological exam: Present: alert, oriented X3, CN II-XII intact Psychiatric exam: Present: normal affect, normal mood Skin exam: Present: warm, dry, intact, normal color. Absent: rash Course Vital Signs 11/03/24 11/03/24 20:13 22:32 Temperature 98 F Pulse Rate 90 93 Respiratory 20 20 Rate Blood Pressure 134/93 156/100 O2 Sat by Pulse 94 L 88 L Oximetry - Reevaluation(s) Reevaluation #1: 11/03/24 22:16 Medical records reviewed Reevaluation #2: 11/03/24 22:16 Patient in no distress prefers discharge home Reevaluation #3: 11/03/24 22:16 Patient informed of results questions answered Reevaluation #4: Was pt. sent in by a medical professional or institution (, PA, PARTS SALES ASSOCIATE, urgent care, hospital, or [facility]...) When possible be specific @ -no Did you speak to anyone other than the patient for history (EMS, parent, family, police, friend...)? What history was obtained from this source @ -no Did you review nursing and triage notes (agree or disagree)? Why? @ -agree Are old charts reviewed (outside hosp., previous admission, EMS record, old EKG, old radiological studies, urgent care reports/EKG's, [facility] records)? Report findings @ -yes Differential Diagnosis (chest pain, altered mental status, abdominal pain women, abdominal pain men, vaginal bleeding, weakness, fever, dyspnea, syncope, headache, dizziness, GI bleed, back pain, seizure, CVA, palpatations, mental health, musculoskeletal)? @ -prior EKG interpreted by me (3pts min.). @ -yes X-rays interpreted by me (1pt min.). @ -yes negative for acute disease CT interpreted by me (1pt min.). @ -no U/S interpreted by me (1pt. min.). @ -no What testing was considered but not performed or refused? (CT, X-rays, U/S, labs)? Why? @ -none What meds were considered but not given or refused? Why? @ -none Did you discuss the management of the patient with other professionals (professionals i.e. , PA, PARTS SALES ASSOCIATE, lab, RT, psych nurse, social media job titles, pulp grinder, teacher, airfield services officer, outsole caser)? Give summary @ -no Was smoking cessation discussed for >3mins.? @ -no Was critical care preformed (if so, how long)? @ -no Were there social determinants of health that impacted care today? How? (Homelessness, low income, unemployed, alcoholism, drug addiction, transportation, low edu. Level, literacy, decrease access to med. care, skilled nursing, rehab)? @ -none Was there de-escalation of care discussed even if they declined (Discuss DNR or withdrawal of care, Hospice)? DNR status @ -no What co-morbidities impacted this encounter? (DM, HTN, Smoking, COPD, CAD, Cancer, CVA, ARF, Chemo, Hep., AIDS, mental health diagnosis, sleep apnea, morbid obesity)? @ -none Was patient admitted / discharged? Hospital course, mention meds given and route, prescriptions, significant lab abnormalities, going to OR and other pertinent info. @ - Undiagnosed new problem with uncertain prognosis? @ -no Drug Therapy requiring intensive monitoring for toxicity (Heparin, Nitro, Insulin, Cardizem)? @ -no Were any procedures done? @ -no Diagnosis/symptom? @ - Acute, or Chronic, or Acute on Chronic? @ -Acute Uncomplicated (without systemic symptoms) or Complicated (systemic symptoms)? @ -Complicated Side effects of treatment? @ -no Exacerbation, Progression, or Severe Exacerbation? @ -exacerbation Poses a threat to life or bodily function? How? (Chest pain, [place], [place], pneumonia, PE, COPD, DKA, ARF, appy, cholecystitis, CVA, Diverticulitis, Homicidal, Suicidal, threat to staff... and all critical care pts) @ -yes Reevaluation #5: Differential Dyspnea: Coronary syndrome, arrhythmia, tamponade, asthma, COPD, pulmonary embolism, pneumonia, pneumothorax, pulmonary effusion, anaphylaxis, diabetic ketoacidosis, flailed chest, pulmonary contusion, diaphragmatic rupture, anemia, neuromuscular, this is not meant to be an all-inclusive list. Medical Decision Making - Medical Decision Making 54 male to the ER for evaluation. Patient presents today for evaluation regards to cough congestion with COPD longstanding history of COPD on home O2 positive coronavirus here in the ER but no respiratory distress patient prefers discharge home - Lab Data Lab Results 11/03/24 Range/Units 20:17 Influenza Type A (PCR) Not Detected (Not Detectd) Influenza Type B (PCR) Not Detected (Not Detectd) RSV (PCR) Not Detected (Not Detectd) SARS-CoV-2 (PCR) Detected A (Not Detectd) - Radiology Data Radiology results: report reviewed (CXR is positive for pneumonia), image reviewed Disposition Clinical Impression: Coronavirus infection Disposition: HOME SELF-CARE Condition: Good Instructions (If sedation given, give patient instructions): Coronavirus Disease 2019 (COVID-19) Prescriptions: Benzonatate [Tessalon Perles] 100 mg PO TID PRN #15 capsule PRN Reason: Cough Azithromycin [Zithromax] 500 mg PO DAILY #5 tab Is patient prescribed a controlled substance at d/c from ED?: No Referrals: Mary Cary MD [Primary Care Provider] - 1-2 days Time of Disposition: 22:15
[2024-11-03] MEDS: AZITHROMYCIN 500 MG TAB PO STA (22:23)
[2024-11-03] MEDS: BENZONATATE 100 MG CAP PO STA (22:23)
[2024-11-03 22:33] VITALS: BP 156/100; PULSE 93
== END 2024-11-03 22:49 | disposition home or self-care (01) ==
LOC: EC 20:01
DX: B34.2 Coronavirus infection, unspecified (principal); F17.200 Nicotine dependence, unspecified, uncomplicated; Z88.0 Allergy status to penicillin; Z88.8 Allergy status to other drugs, medicaments and biological substances
CPT/HCPCS: 71046; 87636; 99284

== ENCOUNTER 2025-02-16 14:34 | Emergency (ER) | payer OTHER ==
[2025-02-16 14:56] VITALS: BP 117/73; PULSE 95; RESP 16; TEMP 98
--- NOTE | 2025-02-16 16:01 | XR ---
EXAMINATION TYPE: XR foot complete RT, XR ankle limited RT DATE OF EXAM: 02/16/2025 3:38 PM COMPARISON: None CLINICAL INDICATION: Male, 54 years old with history of fall pain swelling; PHH, pain TECHNIQUE: XR foot complete RT, XR ankle limited RT examined in the AP, oblique, and lateral projecti ons. FINDINGS: No evidence of any acute osseous pathology. Mild soft tissue swelling throughout the foot. Multifocal degeneration changes throughout the joints of the foot with osteophyte formation and joint space karlene rowing. There is a metallic density with linear membrane millimeters just deep to the first metatarsa l shaft. IMPRESSION: 1. No evidence of acute fracture. 2. Multifocal degeneration changes throughout the joints of the foot. 3. Linear metallic density in the plantar surface of the foot near the first metatarsal. 4. Mild soft tissue swelling. [facility], , 02/16/2025 3:58 PM
--- NOTE | 2025-02-16 16:03 | ED ---
Lower Extremity Injury HPI - General Chief Complaint: Extremity Injury, Lower Stated Complaint: R foot injury Time Seen by Provider: 02/16/25 16:02 Source: patient, RN notes reviewed Mode of arrival: ambulatory Limitations: no limitations - History of Present Illness Initial Comments: 54-year-old male presented to ER for evaluation of right foot injury. Patient states he was walking into a gas station and which had the door propped open with a wood pile. Patient states he did not see the wood pile initially and he accidentally stepped on a piece of wood causing him to twist his ankle. He has been reporting pain to right foot and ankle since injury. Denies paresthesias. Patient reports pain with weightbearing. Patient denies falling or other injuries. No head injury. Has not take anything for pain at this time. - Related Data Home Medications Medication Instructions Recorded Confirmed amLODIPine [Norvasc] 5 mg PO DAILY 01/23/15 08/25/24 Albuterol Inhaler [Ventolin Hfa 2 puff INHALATION RT-Q4H PRN 09/23/23 08/25/24 Inhaler] Budesonide/Formoterol Fumarate 2 puff INHALATION RT-BID 09/23/23 08/25/24 [Symbicort 160-4.5 Mcg Inhaler] DULoxetine HCL [Cymbalta] 60 mg PO DAILY 09/23/23 08/25/24 Hydroxychloroquine Sulfate 200 mg PO BID 09/23/23 08/25/24 [Plaquenil] busPIRone HCl [Buspar] 10 mg PO BID 09/23/23 08/25/24 Aspirin [Adult Low Dose Aspirin EC] 81 mg PO DAILY 02/02/24 08/25/24 Losartan [Cozaar] 25 mg PO DAILY 02/02/24 08/25/24 Metoprolol Tartrate 25 mg PO BID 02/02/24 08/25/24 Tofacitinib Citrate [Xeljanz Xr] 11 mg PO DAILY 02/02/24 08/25/24 ARIPiprazole [Abilify] 5 mg PO HS 08/25/24 08/25/24 Ipratropium-Albuterol Nebulize 3 ml INHALATION RT-QID 08/25/24 08/25/24 [Duoneb 0.5 mg-3 mg/3 ml Soln] [place] Carbonate 600 mg PO HS 08/25/24 08/25/24 Omeprazole 20 mg PO DAILY 08/25/24 08/25/24 Rosuvastatin [Crestor] 20 mg PO DAILY 08/25/24 08/25/24 Tiotropium 2.5 Mcg/Puff [Spiriva 2 puff INHALATION RT-DAILY 08/25/24 08/25/24 Respimat 2.5 Mcg] Previous Rx's Medication Instructions Recorded Cyclobenzaprine [Flexeril] 5 mg PO TID PRN #15 tablet 09/27/24 Azithromycin [Zithromax] 500 mg PO DAILY #5 tab 11/03/24 Benzonatate [Tessalon Perles] 100 mg PO TID PRN #15 capsule 11/03/24 Allergies Allergy/AdvReac Type Severity Reaction Status Date / Time divalproex sodium AdvReac Nausea & Verified 11/03/24 20:17 [From Depakote] Vomiting haloperidol [From Haldol] AdvReac Nausea & Verified 11/03/24 20:17 Vomiting haloperidol lactate AdvReac Nausea & Verified 11/03/24 20:17 [From Haldol] Vomiting Penicillins AdvReac Nausea & Verified 11/03/24 20:17 Vomiting Review of Systems ROS Statement: Those systems with pertinent positive or pertinent negative responses have been documented in the HPI. ROS Other: All systems not noted in ROS Statement are negative. Past Medical History Past Medical History: COPD, Fibromyalgia, GERD/Reflux, Hyperlipidemia, Hypertension, Rheumatoid Arthritis (RA), Skin Disorder Additional Past Medical History / Comment(s): See Dr Hdez's H&P. Ulcerative colitis. Constipation. HX FRACTURED SKULL FROM A FALL, hx fractures of arms and hands. Psorasis. Poor circulation. Hx kidney stones. Migraines. Issues with vasovagal response with coughing. Vertigo. O2 PRN History of Any Multi-Drug Resistant Organisms: MRSA Date of last positivie culture/infection: 01/23/2015 MDRO Source:: Left Axilla Past Surgical History: Prostate Surgery Additional Past Surgical History / Comment(s): Right carpal tunnel, right lung biopsy, EGD. Past Anesthesia/Blood Transfusion Reactions: No Reported Reaction Additional Past Anesthesia/Blood Transfusion Reaction / Comment(s): No family hx known - adopted. Past Psychological History: Anxiety, Bipolar, Depression, Panic Disorder Smoking Status: Current every day smoker Past Alcohol Use History: None Reported Past Drug Use History: None Reported - Past Family History Daughter(s) Family Medical History: No Reported History Additional Family Medical History / Comment(s): Patient states adopted at age 2, no known family hx. Patient states 2 daughters and 1 son removed from his care by the state, does not know any family hx. General Exam Limitations: no limitations General appearance: alert, in no apparent distress Respiratory exam: Present: normal lung sounds bilaterally. Absent: respiratory distress, wheezes, rales, rhonchi, stridor Cardiovascular Exam: Present: regular rate, normal rhythm, normal heart sounds. Absent: systolic murmur, diastolic murmur, rubs, gallop, clicks Extremities exam: Present: normal inspection, full ROM, tenderness (Lateral malleolus), normal capillary refill (2+ left DP pulse.) Neurological exam: Present: alert, oriented X3, CN II-XII intact Skin exam: Present: warm, dry, intact, normal color. Absent: rash Course Vital Signs 02/16/25 14:54 Temperature 98 F Pulse Rate 95 Respiratory 16 Rate Blood Pressure 117/73 O2 Sat by Pulse 98 Oximetry Medical Decision Making - Medical Decision Making Was pt. sent in by a medical professional or institution (, PA, LETTERER, urgent care, hospital, or senior care...) When possible be specific @ -No Did you speak to anyone other than the patient for history (EMS, parent, family, police, friend...)? What history was obtained from this source @ -No Did you review nursing and triage notes (agree or disagree)? Why? @ -I reviewed and agree with nursing and triage notes Were old charts reviewed (outside hosp., previous admission, EMS record, old EKG, old radiological studies, urgent care reports/EKG's, senior care records)? Report findings @ -No old charts were reviewed Differential Diagnosis (chest pain, altered mental status, abdominal pain women, abdominal pain men, vaginal bleeding, weakness, fever, dyspnea, syncope, headache, dizziness, GI bleed, back pain, seizure, CVA, palpatations, mental health, musculoskeletal)? @ -Differential Musculoskeletal Muscular strain, contusion, ligament sprain, fracture, arthritis, septic arthritis, bursitis, cellulitis, muscle spasm, nerve compression, DVT, arterial occlusion, herpes zoster, electrolyte abnormality, tumor.... This is not meant to be in all inclusive list EKG interpreted by me (3pts min.). @ -None done X-rays interpreted by me (1pt min.). @ -Left foot and ankle x-ray interpreted me negative for acute fractures or dislocations. Mild soft tissue swelling. Linear density at plantar aspect of foot. CT interpreted by me (1pt min.). @ -None done U/S interpreted by me (1pt. min.). @ -None done What testing was considered but not performed or refused? (CT, X-rays, U/S, labs)? Why? @ -None What meds were considered but not given or refused? Why? @ -None Did you discuss the management of the patient with other professionals (professionals i.e. , PA, LETTERER, lab, RT, psych nurse, director social service, assistant infant toddler teacher, teacher, hospital security officer, case management director)? Give summary @ -No Was smoking cessation discussed for >3mins.? @ -No Was critical care preformed (if so, how long)? @ -No Were there social determinants of health that impacted care today? How? (Homelessness, low income, unemployed, alcoholism, drug addiction, transportation, low edu. Level, literacy, decrease access to med. care, care home, rehab)? @ -No Was there de-escalation of care discussed even if they declined (Discuss DNR or withdrawal of care, Hospice)? DNR status @ -No What co-morbidities impacted this encounter? (DM, HTN, Smoking, COPD, CAD, Cancer, CVA, ARF, Chemo, Hep., AIDS, mental health diagnosis, sleep apnea, morbid obesity)? @ -None Was patient admitted / discharged? Hospital course, mention meds given and route, prescriptions, significant lab abnormalities, going to OR and other pertinent info. @ -Discharge. 54-year-old male presented ER for evaluation of right foot/ankle injury. Vital signs stable. Patient in no signs acute distress. Exam remarkable for tenderness to lateral malleolus with minimal edema. No overlying skin changes. X-rays obtained negative for acute fractures or dislocations. There is a metallic soft tissue foreign body noted. Upon reexamination. there is no tenderness to this area or foreign body identified.patient educated on x- ray results, all questions answered. Patient provided with Shaan compression wrap along with p.o. ibuprofen. Conservative treatment options discussed. Return parameters discussed. Patient discharged stable condition. Patient verbally expressed understand agree with care plan. Case discussed with ED attending, Dr. Purcell Undiagnosed new problem with uncertain prognosis? @ -No Drug Therapy requiring intensive monitoring for toxicity (Heparin, Nitro, Insulin, Cardizem)? @ -No Were any procedures done? @ -No Diagnosis/symptom? @ -Ankle sprain Acute, or Chronic, or Acute on Chronic? @ -Acute Uncomplicated (without systemic symptoms) or Complicated (systemic symptoms)? @ -Default Side effects of treatment? @ -No Exacerbation, Progression, or Severe Exacerbation? @ -No Poses a threat to life or bodily function? How? (Chest pain, [place], [place], pneumonia, PE, COPD, DKA, ARF, appy, cholecystitis, CVA, Diverticulitis, Homicidal, Suicidal, threat to staff... and all critical care pts) @ -No - Radiology Data Radiology results: report reviewed, image reviewed Disposition Clinical Impression: Ankle sprain Disposition: HOME SELF-CARE Condition: Stable Instructions (If sedation given, give patient instructions): Ankle Sprain (ED) Additional Instructions: You may take [id number] Profen and Tylenol for pain control. Follow-up with orthopedics if symptoms persist. Continue to rest ice and elevate. May also use compression. Return to the ER for any new or worsening concerns Is patient prescribed a controlled substance at d/c from ED?: No Referrals: Mary Cary MD [Primary Care Provider] - 1-2 days Rodolfo Rueda MD [Medical Doctor] - 1-2 days Time of Disposition: 16:18
[2025-02-16] MEDS: IBUPROFEN 600 MG TAB PO STA (16:45)
== END 2025-02-16 17:08 | disposition home or self-care (01) ==
LOC: EC 14:34
DX: S93.401A Sprain of unspecified ligament of right ankle, initial encounter (principal); F17.200 Nicotine dependence, unspecified, uncomplicated; Z88.0 Allergy status to penicillin; Z88.8 Allergy status to other drugs, medicaments and biological substances; W22.09XA Striking against other stationary object, initial encounter; Y93.01 Activity, walking, marching and hiking; Y92.524 Gas station as the place of occurrence of the external cause
CPT/HCPCS: 99283